=== PATIENT | female | born 1955 | race Caucasian/White ===

== ENCOUNTER 2020-04-02 18:33 | Observation (INO) | payer MEDICARE, SELFPAY ==
--- NOTE | 2020-04-02 18:35 | XR_ITS ---
WS: [id number] Portable AP upright chest, 04/02/2020 Clinical Data: cp Comparison: None. Findings: No nodules, masses or effusions are seen. The heart is normal. The pulmonary vascularity is not increased. No pneumonia or pneumothorax is seen. The aortic arch and descending aorta are tortuo us. XR/XR chest 1V portable [id number] Impression: Atherosclerosis.
--- NOTE | 2020-04-02 18:35 | ECG_ITS ---
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
[2020-04-02 19:13] VITALS: BP 153/88; PULSE 83; RESP 14; TEMP 36.4; O2SAT 93; BMI 39.1
[2020-04-02 19:46] VITALS: BP 136/85; PULSE 89; O2SAT 94
[2020-04-02] MEDS: aspirin 81 mg Chew Tablet 324 MG PO (19:57)
[2020-04-02 19:58] LABS: Basophils # 0.1 10^3/uL (0.0-0.1); Basophils % 0.4 %; Eosinophils # 0.3 10^3/uL (0.0-0.8); Eosinophils % 1.7 %; Hematocrit 47.7 % (37.0-47.0); Hemoglobin 15.3 g/dL (11.5-15.3); Lymphocytes # 4.2 10^3/uL (0.8-4.8); Lymphocytes % 24.1 %; Mean Corpuscular HGB Conc 32.1 g/dL (30.0-36.0); Mean Corpuscular Hemoglobin 28.9 pg (28.0-34.0); Mean Platelet Volume 8.7 fL (7.4-10.4); Monocytes # 0.9 10^3/uL (0.2-0.9); Monocytes % 4.9 %; Neutrophils # 11.97 10^3/uL (1.8-7.7); Neutrophils % 68.4 %; Nucleated Red Blood Cells % 0 %; Platelet Count 377 10^3/cmm (130-400); Red Cell Distribution Width 13.5 % (12.1-15.1); White Blood Count 17.5 10^3/uL (4.0-10.0)
--- NOTE | 2020-04-02 20:13 | ED_ITS ---
HPI - Chest Pain General: Chief Complaint: Chest Pain Stated Complaint: CHEST PAIN Time Seen by Provider: 04/02/20 19:37 History of Present Illness: HPI narrative: The patient is a 64-year-old female with past medical history COPD who comes to the ER complaining of chest pain that radiates down her left arm and left neck. She says she has had episodes of this for the past several months however in the past few days they have been increasing in frequency and she has had them several times a day now. She says she has a very mild pain in the ER which feels like something is pushing on her chest. The pain is midsternal and radiates to her left side. She denies previous history of NM. MD complaint: chest pain Timing of current episode: daily, increasing and still present Prior episodes: Yes Onset: during rest and during exertion Pain location: substernal and left chest Pain radiation: left arm and neck Severity: moderate Relieving factors: nothing Associated symptoms: Deny abdominal pain, dyspnea, leg edema, nausea, palpitations or vomiting Review of Systems General: Reports: 10 or more systems reviewed and unremarkable except in HPI and below Const: Denies: fatigue Eyes: Denies: change in vision, blurry vision or eye redness ENMT: Denies: throat pain, swelling of lips/tongue, ear or mastoid pain or na dustin congestion Card: Reports: chest pain; Denies: palpitations, irregular heart rhythm, edema, dyspnea on exertion or or thopnea Resp: Denies: dyspnea GI: Denies: abdominal pain, nausea or vomiting : Denies: flank pain, difficulty voiding, urinary frequency or urinary urgency Musc: Denies: neck pain, back pain, extremity pain, joint pain, joint redness, limited range of motion or muscle weakness Skin/Breast: Denies: rash, pruritus, erythema, skin pain or skin tenderness Neuro: Denies: headache(s), numbness in extremities, weakness in extremities, sensory changes, difficulty walking, dizziness, confusion or Slurred speech present Psych: Denies: anxiety or depression Endo: Denies: polyuria All/Imm: Denies: urticaria, throat swelling or tongue swelling PFSH ED PFSH: Medical History (Updated 04/03/20 @ 00:28 by Tara Hays MD) COPD (chronic obstructive pulmonary disease) Hypertension Surgical History (Updated 04/03/20 @ 00:28 by Tara Hays MD) H/O tubal ligation H/O: hemorrhoidectomy History of appendectomy History of hysterectomy Family History (Updated 04/03/20 @ 00:28 by Tara Hays MD) Grandmother Family history of premature coronary artery disease Social History (Updated 04/03/20 @ 00:28 by Tara Hays MD) Smoking and tobacco status: heavy tobacco smoker cigarettes [ Other cigarette details: [id number] smoking ] Alcohol intake: never Household members: family Housing: House Physical Exam Const: COMMON NORMALS: no acute distress, average body habitus, patient oriented x3, no limitations, healthy appearing, alert and well nourished GENERAL APPEARANCE: cooperative, comfortable, well kempt and well developed ORIENTATION/CONSCIOUSNESS: Yes awake, Yes oriented to person, Yes oriented to place and Yes oriented to time HENMT: COMMON NORMALS: normocephalic, external ears normal and Normal external nose present HEAD & SCALP: normal to inspection and normocephalic NOSE: Normal external nose present EXTERNAL EAR: Yes external ears normal MOUTH: Normal oral and palatal mucosa present THROAT: posterior oropharynx normal Eye: COMMON NORMALS: Equal, round and reactive pupils present and EOMs intact bilaterally GENERAL EYE: appearance normal, both eyes and all related structures PUPIL: Yes Equal, round and reactive pupils present Neck/C-Spine: COMMON NORMALS: full ROM, no lymphadenopathy, no meningeal signs and no JVD GENERAL: Yes normal visual inspection Lymph: LYMPHATIC: no lymphadenopathy noted Chest: COMMONS NORMALS: normal inspection of the chest and normal palpation of entire chest wall Resp: COMMON NORMALS: normal respiratory effort, No retractions, No use of accessory muscles, clear to auscultation bilaterally and percussion normal EFFORT & INSPECTION: Yes able to speak in complete sentences AUSCULTATION: clear to auscultation bilaterally PERCUSSION: percussion normal Cardio: COMMON NORMALS: no JVD, regular rate, regular rhythm, S1 normal heart sound present, S2 normal heart sound present and Peripheral pulses 2+ throughout RATE: regular rate RHYTHM: regular rhythm HEART SOUNDS: S1 normal heart sound present and S2 normal heart sound present PERIPHERAL PULSES: Peripheral pulses 2+ throughout GI: COMMON NORMALS: Normal to inspection, nondistended, normoactive bowel sounds present, Soft to palpation, non-tender and no masses INSPECTION: Yes normal to inspection PALPATION: Yes Soft to palpation : COMMON NORMALS: Yes no CVA tenderness BLADDER/KIDNEY EXAM: Yes no CVA tenderness Back/Pelvis: COMMON NORMALS: no CVA tenderness, thoracic and lumbar spine normal to inspection, no thoracic nor lumbar tenderness and thoraco-lumbar ROM normal Extremity: COMMON NORMALS: normal to inspection, full ROM, capillary refill normal, no joint enlargement and no pedal edema GENERAL: Yes normal exam except as noted Neuro: COMMON NORMALS: patient oriented x3, CN's II-XII intact bilaterally, moves all extremities, no focal motor deficits, no sensory deficits noted and gait normal SENSORIUM/ORIENTATION: Yes alert, Yes oriented to person, Yes oriented to place and Yes oriented to time MENINGEAL SIGNS: Yes no meningeal signs Psych: COMMON NORMALS: mental status grossly normal, Normal thought process present, cooperative, normal affect and speech normal APPEARANCE: Yes well kempt ATTITUDE: Yes calm SPEECH: Yes normal speech THOUGHT PROCESS: Normal thought process present Skin: COMMON NORMALS: no rashes or lesions noted GENERAL SKIN EXAM: no rashes or lesions noted Course Vital Signs: Vital signs: Vital Signs Temperature 98.1 F 04/03/20 19:40 Pulse Rate 93 04/03/20 19:40 Respiratory Rate 18 04/03/20 19:40 Blood Pressure 126/81 04/03/20 19:40 Pulse Oximetry 96 04/03/20 19:40 MDM - Chest Pain MDM Narrative: Medical decision making narrative: The patient came into the ER complaining of left-sided chest pain radiating to her left shoulder and neck. She was admitted to the ER for observation of her chest pain. EKG and troponin were normal. Her white count was also 15 and chest x-ray shows a right-sided pneumonia. She was started on IV antibiotics and admitted to the hospitalist. Lab Data: Labs: Lab Results 04/02/20 04/02/20 04/02/20 Range/Units 19:40 19:40 19:40 WBC 17.5 H (4.0-10.0) 10^3/ uL RBC 5.30 (4.1-5.3) 10^6/u L Hgb 15.3 (11.5-15.3) g/dL Hct 47.7 H (37.0-47.0) % MCV 90.0 (81-99) fL MCH 28.9 (28.0-34.0) pg MCHC 32.1 (30.0-36.0) g/dL RDW 13.5 (12.1-15.1) % Plt Count 377 (130-400) 10^3/c mm MPV 8.7 (7.4-10.4) fL Neut % (Auto) 68.4 % Lymph % (Auto) 24.1 % Dukes % (Auto) 4.9 % Eos % (Auto) 1.7 % Baso % (Auto) 0.4 % Neut # (Auto) 11.97 H (1.8-7.7) 10^3/u L Lymph # (Auto) 4.2 (0.8-4.8) 10^3/u L Dukes # (Auto) 0.9 (0.2-0.9) 10^3/u L Eos # (Auto) 0.3 (0.0-0.8) 10^3/u L Baso # (Auto) 0.1 (0.0-0.1) 10^3/u L Nucleated RBC % (a uto) 0 % Nucleated RBCs # 0.0 /100WBC D-Dimer (0-0.59) ug/mIFE U Sodium 136 (136-145) mmol/L Potassium 4.3 (3.5-5.1) mmol/L Chloride 97 L (98-107) mmol/L Carbon Dioxide 31 H (22-29) mmol/L Anion Gap 12.3 (5-19) BUN 13 (8-23) mg/dL Creatinine 0.6 (0.5-0.9) mg/dL GFR Calculation 101.3 (90-130) mL/min Glucose 162 H (65-115) mg/dL Estimat Average Gl ucose Hemoglobin A1c (4.0-6.0) % Calculated Osmolal ity 286 (285-295) mOsm/k g Calcium 9.6 (8.5-10.5) mg/dL Total Bilirubin 0.4 (0.15-1.2) mg/dL AST 12 (0-32) U/L ALT 16 (0-33) U/L Alkaline Phosphata se 73 (35-105) IU/L Troponin T Baselin e 7 (0-10) ng/L Troponin T 120 Min [place] (0-10) ng/L Delta Troponin T (0-10) ABS# Troponin T Hi Sens 6Hr (0-10) ng/L Troponin T Hi Sens 6Hr Delta (0-12) ng/L Total Protein 6.5 L (6.6-8.7) g/dL Albumin 4.1 (3.5-5.2) g/dL Globulin 2.4 (1.3-4.6) g/dL Triglycerides (0-150) mg/dL Cholesterol (0-200) mg/dL LDL Cholesterol, C alc (50-129) mg/dL HDL Cholesterol (60-100) mg/dL LDL/HDL Ratio (0.00-3.22) RATI O Cholesterol/HDL Ra katelyn (0.0-4.40) mg/dL Urine Color (Yellow) Urine Appearance (CLEAR) Urine pH (5-7) Ur Specific Gravit y (1.005-1.030) Urine Protein (Negative) Urine Glucose (UA) (Normal) Urine Ketones (Negative) Urine Blood (Negative) Urine Nitrate (Negative) Urine Bilirubin (Negative) Urine Urobilinogen (Negative) mg/dL Ur Leukocyte Nancy ase (Negative) SARS-CoV-2 Ag (Rap id) (Negative) 04/02/20 04/02/20 04/02/20 Range/Units 19:40 19:40 20:52 WBC (4.0-10.0) 10^3/ uL RBC (4.1-5.3) 10^6/u L Hgb (11.5-15.3) g/dL Hct (37.0-47.0) % MCV (81-99) fL MCH (28.0-34.0) pg MCHC (30.0-36.0) g/dL RDW (12.1-15.1) % Plt Count (130-400) 10^3/c mm MPV (7.4-10.4) fL Neut % (Auto) % Lymph % (Auto) % Dukes % (Auto) % Eos % (Auto) % Baso % (Auto) % Neut # (Auto) (1.8-7.7) 10^3/u L Lymph # (Auto) (0.8-4.8) 10^3/u L Dukes # (Auto) (0.2-0.9) 10^3/u L Eos # (Auto) (0.0-0.8) 10^3/u L Baso # (Auto) (0.0-0.1) 10^3/u L Nucleated RBC % (a uto) % Nucleated RBCs # /100WBC D-Dimer 0.28 (0-0.59) ug/mIFE U Sodium (136-145) mmol/L Potassium (3.5-5.1) mmol/L Chloride (98-107) mmol/L Carbon Dioxide (22-29) mmol/L Anion Gap (5-19) BUN (8-23) mg/dL Creatinine (0.5-0.9) mg/dL GFR Calculation (90-130) mL/min Glucose (65-115) mg/dL Estimat Average Gl ucose 154 Hemoglobin A1c 7.0 H (4.0-6.0) % Calculated Osmolal ity (285-295) mOsm/k g Calcium (8.5-10.5) mg/dL Total Bilirubin (0.15-1.2) mg/dL AST (0-32) U/L ALT (0-33) U/L Alkaline Phosphata se (35-105) IU/L Troponin T Baselin e (0-10) ng/L Troponin T 120 Min [place] (0-10) ng/L Delta Troponin T (0-10) ABS# Troponin T Hi Sens 6Hr (0-10) ng/L Troponin T Hi Sens 6Hr Delta (0-12) ng/L Total Protein (6.6-8.7) g/dL Albumin (3.5-5.2) g/dL Globulin (1.3-4.6) g/dL Triglycerides (0-150) mg/dL Cholesterol (0-200) mg/dL LDL Cholesterol, C alc (50-129) mg/dL HDL Cholesterol (60-100) mg/dL LDL/HDL Ratio (0.00-3.22) RATI O Cholesterol/HDL Ra katelyn (0.0-4.40) mg/dL Urine Color Yellow (Yellow) Urine Appearance Clear (CLEAR) Urine pH 5.0 (5-7) Ur Specific Gravit y 1.005 (1.005-1.030) Urine Protein Neg (Negative) Urine Glucose (UA) Norm (Normal) Urine Ketones Negative (Negative) Urine Blood Neg (Negative) Urine Nitrate Negative (Negative) Urine Bilirubin Neg (Negative) Urine Urobilinogen Norm (Negative) mg/dL Ur Leukocyte Nancy ase Negative (Negative) SARS-CoV-2 Ag (Rap id) (Negative) 04/02/20 04/02/20 04/03/20 Range/Units 21:35 22:01 00:35 WBC (4.0-10.0) 10^3/ uL RBC (4.1-5.3) 10^6/u L Hgb (11.5-15.3) g/dL Hct (37.0-47.0) % MCV (81-99) fL MCH (28.0-34.0) pg MCHC (30.0-36.0) g/dL RDW (12.1-15.1) % Plt Count (130-400) 10^3/c mm MPV (7.4-10.4) fL Neut % (Auto) % Lymph % (Auto) % Dukes % (Auto) % Eos % (Auto) % Baso % (Auto) % Neut # (Auto) (1.8-7.7) 10^3/u L Lymph # (Auto) (0.8-4.8) 10^3/u L Dukes # (Auto) (0.2-0.9) 10^3/u L Eos # (Auto) (0.0-0.8) 10^3/u L Baso # (Auto) (0.0-0.1) 10^3/u L Nucleated RBC % (a uto) % Nucleated RBCs # /100WBC D-Dimer (0-0.59) ug/mIFE U Sodium (136-145) mmol/L Potassium (3.5-5.1) mmol/L Chloride (98-107) mmol/L Carbon Dioxide (22-29) mmol/L Anion Gap (5-19) BUN (8-23) mg/dL Creatinine (0.5-0.9) mg/dL GFR Calculation (90-130) mL/min Glucose (65-115) mg/dL Estimat Average Gl ucose Hemoglobin A1c (4.0-6.0) % Calculated Osmolal ity (285-295) mOsm/k g Calcium (8.5-10.5) mg/dL Total Bilirubin (0.15-1.2) mg/dL AST (0-32) U/L ALT (0-33) U/L Alkaline Phosphata se (35-105) IU/L Troponin T Baselin e (0-10) ng/L Troponin T 120 Min [place] 7.41 (0-10) ng/L Delta Troponin T 0.41 (0-10) ABS# Troponin T Hi Sens 6Hr 7.65 (0-10) ng/L Troponin T Hi Sens 6Hr Delta 0.65 (0-12) ng/L Total Protein (6.6-8.7) g/dL Albumin (3.5-5.2) g/dL Globulin (1.3-4.6) g/dL Triglycerides (0-150) mg/dL Cholesterol (0-200) mg/dL LDL Cholesterol, C alc (50-129) mg/dL HDL Cholesterol (60-100) mg/dL LDL/HDL Ratio (0.00-3.22) RATI O Cholesterol/HDL Ra katelyn (0.0-4.40) mg/dL Urine Color (Yellow) Urine Appearance (CLEAR) Urine pH (5-7) Ur Specific Gravit y (1.005-1.030) Urine Protein (Negative) Urine Glucose (UA) (Normal) Urine Ketones (Negative) Urine Blood (Negative) Urine Nitrate (Negative) Urine Bilirubin (Negative) Urine Urobilinogen (Negative) mg/dL Ur Leukocyte Nancy ase (Negative) SARS-CoV-2 Ag (Rap id) Negative (Negative) 04/03/20 Range/Units 00:35 WBC (4.0-10.0) 10^3/ uL RBC (4.1-5.3) 10^6/u L Hgb (11.5-15.3) g/dL Hct (37.0-47.0) % MCV (81-99) fL MCH (28.0-34.0) pg MCHC (30.0-36.0) g/dL RDW (12.1-15.1) % Plt Count (130-400) 10^3/c mm MPV (7.4-10.4) fL Neut % (Auto) % Lymph % (Auto) % Dukes % (Auto) % Eos % (Auto) % Baso % (Auto) % Neut # (Auto) (1.8-7.7) 10^3/u L Lymph # (Auto) (0.8-4.8) 10^3/u L Dukes # (Auto) (0.2-0.9) 10^3/u L Eos # (Auto) (0.0-0.8) 10^3/u L Baso # (Auto) (0.0-0.1) 10^3/u L Nucleated RBC % (a uto) % Nucleated RBCs # /100WBC D-Dimer (0-0.59) ug/mIFE U Sodium (136-145) mmol/L Potassium (3.5-5.1) mmol/L Chloride (98-107) mmol/L Carbon Dioxide (22-29) mmol/L Anion Gap (5-19) BUN (8-23) mg/dL Creatinine (0.5-0.9) mg/dL GFR Calculation (90-130) mL/min Glucose (65-115) mg/dL Estimat Average Gl ucose Hemoglobin A1c (4.0-6.0) % Calculated Osmolal ity (285-295) mOsm/k g Calcium (8.5-10.5) mg/dL Total Bilirubin (0.15-1.2) mg/dL AST (0-32) U/L ALT (0-33) U/L Alkaline Phosphata se (35-105) IU/L Troponin T Baselin e (0-10) ng/L Troponin T 120 Min [place] (0-10) ng/L Delta Troponin T (0-10) ABS# Troponin T Hi Sens 6Hr (0-10) ng/L Troponin T Hi Sens 6Hr Delta (0-12) ng/L Total Protein (6.6-8.7) g/dL Albumin (3.5-5.2) g/dL Globulin (1.3-4.6) g/dL Triglycerides 156 H (0-150) mg/dL Cholesterol 171 (0-200) mg/dL LDL Cholesterol, C alc 89 (50-129) mg/dL HDL Cholesterol 51 L (60-100) mg/dL LDL/HDL Ratio 1.75 (0.00-3.22) RATI O Cholesterol/HDL Ra katelyn 3.35 (0.0-4.40) mg/dL Urine Color (Yellow) Urine Appearance (CLEAR) Urine pH (5-7) Ur Specific Gravit y (1.005-1.030) Urine Protein (Negative) Urine Glucose (UA) (Normal) Urine Ketones (Negative) Urine Blood (Negative) Urine Nitrate (Negative) Urine Bilirubin (Negative) Urine Urobilinogen (Negative) mg/dL Ur Leukocyte Nancy ase (Negative) SARS-CoV-2 Ag (Rap id) (Negative) Discharge Plan Discharge Patient Disposition: Admitted As Inpatient Admit Provider: Tara Hays Condition: Stable Coding Level of Care Code ED Sap Solution Manager Consultant for Chg Fwd Exam Comprehensive
[2020-04-02 20:29] LABS: D Dimer 0.28 ug/mIFEU (0-0.59)
[2020-04-02 20:33] LABS: Alanine Aminotransferase 16 U/L (0-33); Albumin Level 4.1 g/dL (3.5-5.2); Alkaline Phosphatase 73 IU/L (35-105); Anion Gap 12.3 (5-19); Aspartate Amino Transferase 12 U/L (0-32); Blood Urea Nitrogen 13 mg/dL (8-23); Calcium 9.6 mg/dL (8.5-10.5); Carbon Dioxide 31 mmol/L (22-29); Chloride 97 mmol/L (98-107); Globulin 2.4 g/dL (1.3-4.6); Glomerular Filtration Rate 101.3 mL/min (90-130); Glucose 162 mg/dL (65-115); Osmolality Calculated 286 mOsm/kg (285-295); Potassium 4.3 mmol/L (3.5-5.1); Sodium 136 mmol/L (136-145); Total Bilirubin 0.4 mg/dL (0.15-1.2); Total Protein 6.5 g/dL (6.6-8.7)
[2020-04-02 20:35] LABS: Troponin(5th) Baseline 7 ng/L (0-10)
--- NOTE | 2020-04-02 20:35 | ECG_ITS ---
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 Measurements Intervals [place] Rate: 84 P: 54 MN: 134 QRS: 47 QRSD: 81 T: 52 QT: 381 QTc: 451 Interpretive Statements SINUS RHYTHM Compared to ECG 04/02/2020 19:10:58 No significant changes Electronically Signed On 04-03-2020 11:28:38 EXPEDITER SERVICE ORDER by Ralph Rojas M.D. [id number]
[2020-04-02] MEDS: nitroglycerin 0.4 mg sublingual Tablet SUBLINGUAL (20:50)
[2020-04-02 20:57] VITALS: BP 151/91; PULSE 87; O2SAT 91
[2020-04-02 21:00] LABS: Add Urine Microscopic? NO
--- NOTE | 2020-04-02 21:06 | PC.NURSE ---
EKG done at 2105 and shown to ER doctor
[2020-04-02 21:22] VITALS: BP 163/85; PULSE 80; O2SAT 93
[2020-04-02 21:32] LABS: Bilirubin Urine Neg (Negative); Blood Urine Neg (Negative); Glucose Urine UA Norm (Normal); Ketones Urine Negative (Negative); Leukocyte Esterase Urine Negative (Negative); Nitrate Urine Negative (Negative); Protein Urine Neg (Negative); Specific Gravity, Urine 1.005 (1.005-1.030); Urine Appearance Clear (CLEAR); Urine Color Yellow (Yellow); Urobilinogen Urine Norm (Negative)
[2020-04-02 22:00] LABS: Troponin 5 2HR 7.41 ng/L (0-10); Troponin 5 2HR Delta 0.41 ABS# (0-10)
[2020-04-02] MEDS: levofloxacin-dextrose 5 % 750 MG/150 ML PREMIX 100 MG IV (22:25)
--- NOTE | 2020-04-02 22:36 | P.HP_ITS ---
Providers/Chief Complaint Primary Care Provider: DEB Caballero Chief Complaint: phy ref/poss heart attack History of Present Illness Arlin Arndt is a 64 year old female who does not have significant past medical history other than COPD, nonoxygen dependent presented today with chief complaint of chest pain. Patient stating that for last 3 to 4 days she has been experiencing chest discomfort which she describing as pressure-like sensation substernally which improves with belching and leaning forward, it is radiating towards her left arm and it goes towards her shoulder blades as well. She has tried to take ibuprofen which did not help her symptoms however the nitroglycerin given in the ER helped her. Her chest pain would last few minutes, she has also noticed right leg swelling in last few days. She smokes 1 pack/day, does not drink alcohol, no history of PE stroke [place] or CHF. Endorses family history of coronary disease in maternal family. No recent fever nausea, vomiting, insomnia, PND however she is endorsing inc reased sputum production. Patient is stating that recently she was diagnosed with sinusitis for which she was given doxycycline and steroid which improved her symptoms Diagnostics in the ER revealed leukocytosis no signs of sepsis, negative D- dimer, troponin unremarkable EKG did not show any ischemic or infarctive changes, patient is chest pain-free after getting nitroglycerin, she was loaded with aspirin, chest x-ray showing right middle lobe infiltrate with perihilar lymphadenopathy, I have requested CTA chest to rule out aortic dissection Review of Systems Const: Reports: chills, body aches and fatigue; Denies: fever(s) Eyes: Denies: change in vision or photophobia ENMT: Denies: throat pain Card: Reports: chest pain and swelling of feet/ankles; Denies: dyspnea on exertion or orthopnea Resp: Reports: non-productive cough and pain on inspiration GI: Denies: abdominal pain : Denies: flank pain Musc: Denies: neck pain Skin/Breast: Denies: rash Neuro: Denies: headache(s) Psych: Denies: anxiety Endo: Denies: polyuria Jose/Lymph: Denies: easy bruising All/Imm: Denies: urticaria Medications/Allergies Home Medications Medication Instructions Recorded Confirmed Last Taken Type Benadryl 1 tab PO DAILY@0900 04/02/20 04/02/20 04/02/20 History Multi For Her 1 tab PO DAILY@0900 04/02/20 04/02/20 04/02/20 History albuterol sulfate See Rx Instructions .ROUTE .COMPLEX 04/02/20 04/02/20 04/02/20 History albuterol sulfate [Ventolin HFA] See Rx Instructions .ROUTE .COMPLEX 04/02/20 04/02/20 04/02/20 History baclofen 10 mg PO DAILY@0900 04/02/20 04/02/20 04/02/20 History doxycycline hyclate 100 mg PO DAILY@0900 04/02/20 04/02/20 04/02/20 History fluticasone propion-salmeterol See Rx Instructions .ROUTE .COMPLEX 04/02/20 04/02/20 04/02/20 History fluticasone propionate See Rx Instructions .ROUTE .COMPLEX 04/02/20 04/02/20 04/02/20 History fluticasone propionate [Flovent See Rx Instructions .ROUTE .COMPLEX 04/02/20 04/02/20 04/02/20 History HFA] guaifenesin [Mucinex] 600 mg PO BID@0900,2100 04/02/20 04/02/20 04/02/20 History hydrochlorothiazide 12.5 mg PO DAILY@0900 04/02/20 04/02/20 04/02/20 History ibuprofen-acetaminophen 1 tab PO Q8H PRN 04/02/20 04/02/20 04/02/20 History meloxicam 15 mg PO DAILY@0900 04/02/20 04/02/20 04/02/20 History potassium 1 tab PO DAILY@0900 04/02/20 04/02/20 04/02/20 History prednisone 20 mg PO DAILY@0900 04/02/20 04/02/20 04/01/20 History tiotropium bromide [Spiriva See Rx Instructions .ROUTE .COMPLEX 04/02/20 04/02/20 04/02/20 History Respimat] turmeric 400 mg PO DAILY@0900 04/02/20 04/02/20 04/02/20 History zinc 1 tab PO DAILY@0900 04/02/20 04/02/20 04/02/20 History Allergies Allergy/AdvReac Type Severity Reaction Status Date / Time codeine Allergy ADR-Vomitin Verified 04/02/20 19:13 g morphine Allergy ADR-Vomitin Verified 04/02/20 19:13 g PFSH Acute PFSH: Medical History (Updated 04/03/20 @ 00:28 by Tara Hays MD) COPD (chronic obstructive pulmonary disease) Hypertension Surgical History (Updated 04/03/20 @ 00:28 by Tara Hays MD) H/O tubal ligation H/O: hemorrhoidectomy History of appendectomy History of hysterectomy Family History (Updated 04/03/20 @ 00:28 by Tara Hays MD) Grandmother Family history of premature coronary artery disease Social History (Updated 04/03/20 @ 00:28 by Tara Hays MD) Smoking and tobacco status: heavy tobacco smoker cigarettes [ Other cigarette details: 20-rfeg-qhas smoking ] Alcohol intake: never Household members: family Housing: House Vitals/I&O/Wt Last Vital Signs Temp 97.6 F 04/02/20 19:13 Pulse 80 04/02/20 21:22 Resp 14 04/02/20 19:13 BP 163/85 04/02/20 21:22 Pulse Ox 93 04/02/20 21:22 Weight last 48 hrs Weight 103.419 kg Physical Exam Narrative: EXAM NARRATIVE: Very pleasant middle-aged female She was saturating well on room air No active chest pain S1, S2 no tachycardia or signs of heart failure Abdomen soft nontender bowel sound present EOMI, PERRLA No neurological deficit GCS 15, Awake alert oriented x3 No acute respiratory distress bilateral breath sounds with mild rhonchi Right lower extremity swelling with nonpitting edema Appropriate mood and affect No joint swelling or signs of cellulitis No skin ulcers Data : 04/02/20 19:40 04/02/20 19:40 A&P Assessment and plan (1) Angina at rest: Status: Acute (2) Community acquired pneumonia: Status: Acute Additional A&P Information Unstable angina Carries multiple risk factors, heavy smoker, hypertension, family history, I would request Lexiscan stress test in the morning along echo Nonsignificant troponin elevation, EKG is not showing any ischemic or infarctive changes, N.p.o. after midnight Would rule out aortic dissection would request CTA chest abdomen pelvis D-dimer unremarkable, suspicion for PE is very low Would request lipid panel, A1c Recently she experienced sinusitis for which she was treated with doxycycline and steroid regimen, she does have some component of pericardial chest discomfort, will give her 1 dose of ketorolac Perihilar infiltrate Concern for community-acquired pneumonia, will keep her on ceftriaxone and azithromycin in the ER she received Levaquin, requested urine antigen Hypertension: I would add lisinopril and continue hydrochlorothiazide COPD: No acute exacerbation not requiring oxygen at this point, DuoNeb every 4 as needed N.p.o. after midnight Full code DVT prophylaxis Lovenox Attestations Medical Necessity Statement*: Anticipating discharge in less than 48 hours co ntinued Lexiscan stress test to rule out coronary etiology for her chest discomfort Time Spent in Patient Care: Greater than 35 minutes (>than 50% of time sp ent in counselling and/or direct pt care on unit) . 50mins Coding Level of Care Code Acute Color Sprayer for Cate Garcia Diagnoses Angina at rest I20.8 Community acquired pneumonia J18.9
[2020-04-02 22:41] LABS: SARS Covid-2 Antigen Negative (Negative)
[2020-04-02 22:50] VITALS: BP 161/89; PULSE 88; O2SAT 92
[2020-04-03] VITALS (17 sets, daily range): BP systolic 119–143; BP diastolic 67–92; PULSE 68–94; RESP 14–20; TEMP 36.4–37.1; O2SAT 83–96
--- NOTE | 2020-04-03 00:20 | CTR_ITS ---
PROCEDURE INFORMATION: Exam: CT Angiography Chest Without And With Contrast Exam date and time: 04/03/2020 12:21 AM Age: 64 years old Clinical indication: Difficulty breathing or dyspnea; Prior surgery; Surgery type: Tubal, appy, hyster; Additional info: Aortic dissection TECHNIQUE: Imaging protocol: Computed tomographic angiography of the chest without and with intravenous contrast. 3D rendering (Not supervised by radiologist): MIP and/or 3D reconstructed images were created and reviewed. COMPARISON: CR XR chest 1V portable [id number] 04/02/2020 7:50 PM FINDINGS: Pulmonary arteries: No pulmonary embolus. Aorta: Mild atherosclerotic calcific changes are observed in the aortic arch and descending thoracic aorta. No intramural hematoma, dissection or aneurysm. Lungs: Mild centrilobular emphysema changes are noted. Bibasilar subsegmental atelectasis is appreciated. Pleural space: Unremarkable. No pneumothorax. No pleural effusion. Heart: The heart is normal in size. Lymph nodes: Unremarkable. No enlarged lymph nodes. Bones/joints: Unremarkable. No acute fracture. Soft tissues: Unremarkable. IMPRESSION: 1. Atherosclerosis. No thoracic aorta aneurysm or dissection. No pulmonary embolus. 2. Mild centrilobular emphysema and bibasilar atelectasis. PROCEDURE INFORMATION: Exam: CT Angiography Abdomen and Pelvis With Contrast Exam date and time: 04/03/2020 12:21 AM Age: 64 years old Clinical indication: Difficulty breathing or dyspnea; Prior surgery; Surgery type: Tubal, appy, hyster; Additional info: Aortic dissection TECHNIQUE: Imaging protocol: Computed tomographic angiography of the abdomen and pelvis with intravenous contrast material. 3D rendering (Not supervised by radiologist): MIP and/or 3D reconstructed images were created by the technologist. Radiation optimization: All CT scans at this facility use at least one of these dose optimization techniques: automated exposure control; mA and/or kV adjustment per patient size (includes targeted exams where dose is matched to clinical indication); or iterative reconstruction. Contrast material: OMNI 350; Contrast volume: 95 ml; Contrast route: INTRAVENOUS (IV); COMPARISON: CR XR chest 1V portable [id number] 04/02/2020 7:50 PM RADIATION DOSE METRICS: Total DLP (mGy-cm): 2821.74 FINDINGS: Aorta: Atherosclerotic changes are observed in the abdominal aorta and iliac arteries. No aneurysm or dissection. Celiac trunk and mesenteric arteries: No occlusion or significant stenosis. Renal arteries: No occlusion or significant stenosis. Right iliac arteries: No occlusion or significant stenosis. Left iliac arteries: No occlusion or significant stenosis. Liver: The liver is mildly enlarged. No parenchymal lesion is seen. Gallbladder and bile ducts: Unremarkable. No calcified stones. No ductal dilation. Pancreas: Unremarkable. No mass. No ductal dilation. Spleen: A 19 mm enhancing focus is present in the spleen which is likely benign. No splenomegaly. Adrenals: Unremarkable. No mass. Kidneys and ureters: Unremarkable. No solid mass. No hydronephrosis. Stomach and bowel: Diverticulosis coli is seen, without evidence of diverticulitis. No intestinal obstruction. Appendix: The appendix has been removed. Intraperitoneal space: Unremarkable. No free air. No significant fluid collection. Lymph nodes: Unremarkable. No enlarged lymph nodes. Urinary bladder: Unremarkable. No mass. Reproductive: The uterus is absent. Bones/joints: No acute fracture. No dislocation. Soft tissues: Unremarkable. CT/CT angio chest abdomen pelvis IMPRESSION: 1. Atherosclerosis. No abdominal aortic aneurysm or dissection. 2. Diverticulosis coli. 3. Mild hepatomegaly. Radiation Dose CTDIVOL = (mGy): DLP = ~2821.74 (mGy-cm)
--- NOTE | 2020-04-03 00:35 | ECG_ITS ---
[facility] Test Date: 2020-04-03 Pat Name: Arlin Arndt Department: Room: Gender: Female [employer]: : 1955 Requested By: Samara Parks Order Number: [id number] Reading MD: TEA MIX Measurements Intervals [place] Rate: 83 P: 57 MI: 132 QRS: 47 QRSD: 77 T: 43 QT: 380 QTc: 449 Interpretive Statements SINUS RHYTHM Compared to ECG 04/02/2020 21:02:56 No significant changes Electronically Signed On 04-03-2020 18:02:20 OUTSOLE PARAFFINER by TEA MIX [id number]
[2020-04-03] MEDS: iohexol 350 mg/mL 100 mL Btl IV (00:50)
[2020-04-03 02:07] LABS: Troponin 5 6HR 7.65 ng/L (0-10); Troponin 5 6HR Delta 0.65 ng/L (0-12)
--- NOTE | 2020-04-03 02:22 | NMCV_ITS ---
NM elena perf SPECT r/s* [id number] Arlin Arndt Age: 64 Gender: F : 1955 Exam Date: 04/03/2020 07:56 Ordering Phys: Tara Hays MD Technologist: JAZMYN Chamberlain Exam Location: [facility] Indications: PHY REF/ POSS HEART ATTACK STRESS TEST Please see separate stress test report in [facility] for full findings IMAGE PROTOCOL Rest/Stress 1 Lexiscan Day Radiopharmaceutical Dose (mCi) Administration Site Administered by Rest: Tc-99m 11.0 IV JAZMYN Chamberlain Sestamibi Stress:Tc-99m 32.9 IV JAZMYN [place] Sestamibi Rest: 03-Apr-2020 60 Discovery 630 Stress: 03-Apr-2020 30 Discovery 630 0.4mg Lexiscan. Supine position only as patient was unable to lay prone. SPECT RESULTS Technical Quality: Excellent Raw Data Analysis: Breast attenuation Image Corrections: No attenuation or motion correction applied Summed Stress Score: 0 Summed Rest Score: 1 Summed Difference Score: 0 PERFUSION FINDINGS Medium-sized area of moderate reversibility noted in basal to distal anterior and septal wall suggestive of ischemia in LAD territory. Please note that patient was not able to perform the prone images therefore cannot rule out artifact. Clinical correlation advised. FUNCTIONAL RESULTS (calculated via Gated SPECT) Stress Image LV EF (%): 87 Stress EDV (mL):89 TID: 1.08 Stress ESV (mL):12 Rest Image LV EF (%): 70 FUNCTIONAL FINDINGS: There is normal left ventricular systolic function. IMPRESSIONS Medium-sized area of moderate reversibility noted in basal to distal anterior and septal wall suggestive of ischemia in LAD territory. Please note that patient was not able to perform the prone images therefore cannot rule out artifact. Clinical correlation advised. EKG segment will be documented separately. Tara Harden MD (Electronically Signed) Final Date: 03 April 2020 17:06 S
--- NOTE | 2020-04-03 02:22 | USCV_ITS ---
Arlin Arndt Age: 64 Gender: F : 1955 Exam Date: 04/03/2020 06:07 Ordering Phys: Tara Hays MD Technologist: Cristina Robertson Exam Location: [facility] Indication: ANGINA BP: 120 / 68 HR: 83 Rhythm: Sinus Technical Quality: Adequate MEASUREMENTS (Male / Female) Normal Values 2D ECHO LV Diastolic Diameter PLAX 3.2 cm 4.2 - 5.9 / 3.9 - 5.3 cm LV Systolic Diameter PLAX 1.7 cm LV Chamber Size 2.2 cm IVS Diastolic Thickness 1.3 cm 0.6 - 1.0 / 0.6 - 0.9 cm IVS Systolic Thickness 1.3 cm LVPW Diastolic Thickness 1.9 cm 0.6 - 1.0 / 0.6 - 0.9 cm LVPW Systolic Thickness 2.0 cm RV Chamber Size 4.0 cm LVOT Diameter 2.0 cm LV Ejection Fraction 2D Teich 77.8 % LV Ejection Fraction MOD 2C 42.3 % LV Ejection Fraction 2C AL 42.8 % LA Diameter 2.8 cm LA Width 2.9 cm LA Height 4.2 cm RA Width 3.1 cm RA Height 4.0 cm M-MODE LV Diastolic Diameter MM 5.0 cm 4.2 - 5.9 / 3.9 - 5.3 cm LV Systolic Diameter MM 3.6 cm LV Ejection Fraction MM Teich 53.7 % IVS Diastolic Thickness MM 1.3 cm 0.6 - 1.0 / 0.6 - 0.9 cm IVS Systolic Thickness MM 1.4 cm LVPW Diastolic Thickness MM 1.1 cm 0.6 - 1.0 / 0.6 - 0.9 cm LVPW Systolic Thickness MM 1.6 cm Aortic Annulus Diameter 3.3 cm LA Ao Ratio MM 1.0 MV E Point Septal Separation 0.8 cm DOPPLER AV Peak Velocity 145.0 cm/s LVOT Peak Velocity 108.0 cm/s AV Area Cont Eq vti 2.9 cm squared AV Area Cont Eq pk 2.4 cm squared MV Area PHT 4.9 cm squared Mitral E to A Ratio 0.9 MV E' Velocity 49.0 cm/s Mitral E to MV E' Ratio 10.1 Mitral E to LV E' Lateral Ratio 9.2 Mitral E to LV E' Septal Ratio 11.1 TR Peak Velocity 182.3 cm/s TR Peak Gradient 13.3 mmHg TV Peak E Velocity 39.0 cm/s Right Atrial Pressure 3.0 mmHg Pulmonary Artery Systolic Pressu 16.3 mmHg PV Peak Velocity 79.0 cm/s RV Acceleration Time 0.1 s RV Ejection Time 0.3 s RV AcT/ET 0.5 FINDINGS Left Ventricle Normal left ventricular size and systolic function, EF 60 %. No regional wall motion abnormalities. Grade I/IV diastolic dysfunction (abnormal relaxation filling pattern), normal to mildly elevated filling pressures. Right Ventricle Possibly normal LV size and ejection fraction. Right Atrium Possibly of normal size Left Atrium Possibly of normal size Mitral Valve No gross abnormalities noted Aortic Valve No gross abnormalities noted Tricuspid Valve Not visualized well . Pulmonic Valve Pulmonic valve not well visualized. Pericardium No pericardial effusion. Aorta Normal aortic annulus size. CONCLUSIONS Normal left ventricular size and systolic function, EF 60 %. No regional wall motion abnormalities. Grade I/IV diastolic dysfunction (abnormal relaxation filling pattern), normal to mildly elevated filling pressures. No significant stenotic or regurgitant lesions. Possibly normal chamber sizes. Technically difficult study because of the poor ultrasonic window. Dr Amadna Stanford MD FAC (Electronically Signed) Final Date: 03 April 2020 17:57 S
[2020-04-03 02:47] LABS: Chol HDL Ratio 3.35 mg/dL (0.0-4.40); Cholesterol 171 mg/dL (0-200); HDL Cholesterol 51 mg/dL (60-100); LDL Cholesterol Calculated 89 mg/dL (50-129); LDL HDL Ratio 1.75 RATIO (0.00-3.22); Triglycerides 156 mg/dL (0-150)
[2020-04-03 02:54] LABS: Estmated Average Glucose 154
[2020-04-03] MEDS: ketorolac 30 mg/mL INJ 15 MG IVP (03:22)
[2020-04-03] MEDS: ipratropium-albuterol 3 mL Neb INHALATION ×2 (03:25→12:25)
[2020-04-03 05:38] LABS: Basophils # 0.1 10^3/uL (0.0-0.1); Basophils % 0.4 %; Eosinophils # 0.3 10^3/uL (0.0-0.8); Eosinophils % 1.7 %; Hematocrit 46.5 % (37.0-47.0); Hemoglobin 14.7 g/dL (11.5-15.3); Lymphocytes # 4.5 10^3/uL (0.8-4.8); Lymphocytes % 30.2 %; Mean Corpuscular HGB Conc 31.6 g/dL (30.0-36.0); Mean Corpuscular Hemoglobin 28.7 pg (28.0-34.0); Mean Corpuscular Volume 90.8 fL (81-99); Mean Platelet Volume 8.8 fL (7.4-10.4); Monocytes # 0.9 10^3/uL (0.2-0.9); Monocytes % 5.9 %; Neutrophils # 9.23 10^3/uL (1.8-7.7); Neutrophils % 61.3 %; Nucleated Red Blood Cells % 0 %; Platelet Count 357 10^3/cmm (130-400); Red Blood Count 5.12 10^6/uL (4.1-5.3); Red Cell Distribution Width 13.5 % (12.1-15.1)
[2020-04-03 06:16] LABS: Anion Gap 12.5 (5-19); Blood Urea Nitrogen 12 mg/dL (8-23); Calcium 9.2 mg/dL (8.5-10.5); Carbon Dioxide 32 mmol/L (22-29); Chloride 99 mmol/L (98-107); Glucose 104 mg/dL (65-115); Osmolality Calculated 288 mOsm/kg (285-295); Potassium 4.5 mmol/L (3.5-5.1); Sodium 139 mmol/L (136-145)
[2020-04-03 08:24] LABS: Procalcitonin 0.04 ng/mL (0-0.5)
[2020-04-03] MEDS: regadenoson 0.4 Mg/5 ml Syringe IVP (08:29)
--- NOTE | 2020-04-03 10:05 | PC.CHAP ---
Pastoral Care Encounter/Spiritual Assessment Type of Contact [] Declined floor manager visit [] Patient/Family/Request visit [] Outpatient visit [] Follow-up visit [] Physician referral [] Code/Alert [x] Routine visit [] Staff referral [] Actively dying [] Patient sleeping [] Family support [] [] Out of room [] Palliative care [] [x] Receiving care in room [] Pre-surgical visit [] Trauma [] Long length of stay [] ICU visit [] Other: Relational/Emotional Strength [x] Patient feels connected with others/family/visitors/staff [] Distress [] Loneliness/isolation [] Abandonment Spirituality of Patient [x] Person of Bella [] Attends Yazidism of their Bella [x] Believes in Prayer [] Reads Bible or Amish materials [] There are Spiritual issues to be addressed Supervisor Type Photography Interventions [x] Prayer [x] Active listening [x] Non-anxious presence [x] Spiritual/emotional support [] Crisis/trauma care [x] Spiritual counseling [] Bereavement support [] Provided bereavement packet [] Provided Bible/devotional materials [] Provided toy/stuffed animal, coloring book to patient or family member [] Provided Communion [] Anointing/[place] [] Salvation [x] Completed spiritual assessment [] Other: Impact on Illness or Injury [] Angry [] Fearful [] Anxious [] Often cries [] Exhaustion [] Unable to work [] Unable to attend catholic [] Unable to walk/stand [] Unable to read [] Unable to drive [] Unable to eat/drink [] Unable to sleep [] Unable to be with family [] Patient intubated [] Other: Summary had stress test, doesn't know about tests yet, has a good attitude, bright and alourt Time spent with patient 10 mins
[2020-04-03] MEDS: hydroCHLOROthiazide 25 mg Tablet 12.5 MG PO (10:44)
[2020-04-03] MEDS: azithromycin 250 mg Tablet 500 MG PO (10:44)
[2020-04-03] MEDS: lisinopril 5 mg Tablet PO (10:45)
[2020-04-03] MEDS: cefTRIAXone 1,000 MG in sodium chloride 0.9% (plus) 50 ML 100 MG IV (10:46)
[2020-04-03] MEDS: diphenhydrAMINE 25 mg Capsule PO (11:44)
--- NOTE | 2020-04-03 11:49 | P.PN_ITS ---
Subjective Subjective: Interval history: Patient is doing okay. Denies chest pain. Underwent stress test but the results are pending. No shortness of breath. Reports runny nose. No fever or chills. No nausea or vomiting. No diarrhea. Medications: Reviewed: Yes Medication Review Details: Generic Name Dose Route Start Last Admin Trade Name Freq PRN Reason Stop Dose Admin Albuterol/Ipratrop ium 3 ml 04/03/20 02:22 04/03/20 03:25 Ipratropium-Albu terol 3 Ml Neb INHALATION 3 ml Q6H PRN Administration SHORTNESS OF ISMAEL TH Azithromycin 500 mg 04/03/20 09:00 04/03/20 10:44 Azithromycin 250 Mg Tablet PO 500 mg DAILY NICKIE Administration Protocol Diphenhydramine HC l 25 mg 04/03/20 11:17 04/03/20 11:44 Diphenhydramine 25 Mg Capsule PO 25 mg Q8H PRN Administration ALLERGIES Hydrochlorothiazid e 12.5 mg 04/03/20 09:00 04/03/20 10:44 Hydrochlorothiaz anshu 25 Mg Tablet PO 12.5 mg DAILY@0900 NICKIE Administration Ceftriaxone Sodium 1,000 mg/ 50 mls @ 100 mls/ hr 04/03/20 09:00 04/03/20 10:46 Sodium Chloride IV 100 mls/hr DAILY NICKIE Administration Protocol Lisinopril 5 mg 04/03/20 09:00 04/03/20 10:45 Lisinopril 5 Mg Tablet PO 5 mg DAILY NICKIE Administration Vitals/I&O/Wt Last Vital Signs Temp 97.5 F L 04/03/20 11:42 Pulse 68 04/03/20 11:42 Resp 17 04/03/20 11:42 BP 124/84 04/03/20 11:42 Pulse Ox 94 04/03/20 11:42 Weight last 48 hrs Weight 103.419 kg Physical Exam Narrative: EXAM NARRATIVE: The patient is awake alert oriented. No acute distress. Mood and affect are appropriate. Responses are adequate. Skin warm and dry. Moist mucous nares. Neck supple. No JVD Lungs decreased breath sounds bilaterally. No crackles. No respiratory distress. Heart S1, S2, regular Abdomen soft, nontender, bowel sounds are present Extremities no edema cyanosis or calf tenderness bilaterally. No focal weakness. Normal speech Eyes Kaylee, extraocular muscles are intact. Data : 04/03/20 05:28 04/03/20 05:28 A&P Additional A&P Information Unstable angina Carries multiple risk factors, heavy smoker, hypertension, family history, I would request Lexiscan stress test in the morning along echo Nonsignificant troponin elevation, EKG is not showing any ischemic or infarctive changes, N.p.o. after midnight Would rule out aortic dissection would request CTA chest abdomen pelvis D-dimer unremarkable, suspicion for PE is very low Would request lipid panel, A1c Recently she experienced sinusitis for which she was treated with doxycycline and steroid regimen, she does have some component of pericardial chest discomfort, will give her 1 dose of ketorolac Perihilar infiltrate Concern for community-acquired pneumonia, will keep her on ceftriaxone and azithromycin in the ER she received Levaquin, requested urine antigen Hypertension: I would add lisinopril and continue hydrochlorothiazide COPD: No acute exacerbation not requiring oxygen at this point, DuoNeb every 4 as needed N.p.o. after midnight Full code DVT prophylaxis Lovenox [place] Chest pain. Stress test report is pending. Pneumonia. Continue azithromycin and Rocephin. COPD. The lungs sound tight. However she is not in any distress. No wheezes. We will continue as needed treatments. We will try to avoid steroids as long as she remains stable without hypoxia. DVT prophylaxis. We will start her on Lovenox. Hypertension. Well-controlled. Continue current management. The plan of care was discussed with the patient. She verbalized understanding and agreement. Attestations 2 Medical Necessity Statement*: Need another day for IV antibiotics for pneumonia. Hopefully will be able to discharge her home tomorrow. Coding Level of Care Code Acute Private Duty Nurse for Cate Garcia
--- NOTE | 2020-04-03 15:52 | PC.NURSE ---
patient is on room air. 02 level is 89% i reported this to the nurse
--- NOTE | 2020-04-03 15:55 | PC.NURSE ---
This nurse was notified by LIVING ADVISOR that O2 level was 88-89% I went and recheck O2 she was at 91%. I also notified RT via [employer].
--- NOTE | 2020-04-03 19:39 | PM.EVENT ---
Event Note Event Note: Patient is very upset, she is complaining about the hospital bed and wants to go home, I reviewed her cardiac stress test, EKG, CTA chest, her nurse Winsome has tried to convince her to stay but patient was adamant about leaving. When her nurse asked about her reason to go home patient stated that she was upset about the bed, and her breathing regimen was not administered however it has been ordered as needed. I have also added Pulmicort along DuoNeb in order to satisfy her complaint but Ms. Arndt would not change her decision. She understands risks and complications of leaving AGAINST MEDICAL ADVICE including sudden cardiac arrest, [place] and . final note to be done by Dr. Cutler.
--- NOTE | 2020-04-03 19:42 | PC.NURSE ---
AMA Into pts room and she is stating that she is leaving tonight. Is unhappy with roommate and says is not getting breathing txs the way she wants them. Says she does not believe she even has pneumonia. Says she really just wants to go home. Talked with and offered to change meds to what pt wants and to move her to another room but would not change her mind. Stated when she makes up her mind she is done. Says has already called family to come get her. was informed of pts decision to leave.Signed AMA paperwork and IV removed.
--- NOTE | 2020-04-03 19:45 | PM.DCS ---
Discharge Providers Date of Admission: 04/03/20 01:32 Date of Discharge: April 03, 2020 Attending Provider at Admission: Tara Hays MD Attending Provider at Discharge: David Albert Primary Care Provider: DEB Caballero Diagnoses at Discharge Discharge Diagnosis (1) Angina at rest: Status: Acute (2) Community acquired pneumonia: Status: Acute Reason for Visit Reason for Visit: phy ref/poss heart attack Discharge Data Data Completed and Pending: Completed Studies During Hospitalization Category Date Time Status CT angio chest ab domen pelvis Urgen t Cat Scan 04/03/20 00:20 Completed XR chest 1V [facility] [place] 48024 Stat Exams 04/02/20 18:35 Completed NM elena perf SPECT r/s* [id number] Routin e Nuc Med 04/03/20 02:22 Completed CV echo complete* [id number] Routine Ultrasound 04/03/20 02:22 Completed Pending at discharge Category Date Time Status Sestamibi Stress Test Request Routi ne Exams 04/04/20 06:00 Ordered Bacterial Antigen Stat Lab 04/03/20 02:22 Uncollected Complete Blood Co unt w/Auto AM LABS Lab 04/04/20 04:00 Ordered Legionella Antige n STAT Stat Lab 04/03/20 02:22 Uncollected Magnesium AM LABS Lab 04/04/20 04:00 Ordered Procalcitonin AM LABS Lab 04/04/20 04:00 Ordered Renal Function Pa deyanira AM LABS Lab 04/04/20 04:00 Ordered Labs from last 24 hours 04/03/20 04/03/20 04/03/20 05:28 05:28 05:28 WBC 15.0 H RBC 5.12 Hgb 14.7 Hct 46.5 MCV 90.8 MCH 28.7 MCHC 31.6 RDW 13.5 Plt Count 357 MPV 8.8 Neut % (Auto) 61.3 Lymph % (Auto) 30.2 Maury % (Auto) 5.9 Eos % (Auto) 1.7 Baso % (Auto) 0.4 Neut # (Auto) 9.23 H Lymph # (Auto) 4.5 Maury # (Auto) 0.9 Eos # (Auto) 0.3 Baso # (Auto) 0.1 Nucleated RBC % (a uto) 0 Nucleated RBCs # 0.0 D-Dimer Sodium 139 Potassium 4.5 Chloride 99 Carbon Dioxide 32 H Anion Gap 12.5 BUN 12 Creatinine 0.5 GFR Calculation 125.0 Glucose 104 Estimat Average Gl ucose Hemoglobin A1c Calculated Osmolal ity 288 Calcium 9.2 Total Bilirubin AST ALT Alkaline Phosphata se Troponin T Baselin e Troponin T 120 Min chilkat Delta Troponin T Troponin T Hi Sens 6Hr Troponin T Hi Sens 6Hr Delta Total Protein Albumin Globulin Triglycerides Cholesterol LDL Cholesterol, C alc HDL Cholesterol LDL/HDL Ratio Cholesterol/HDL Ra katelyn Procalcitonin 0.04 Urine Color Urine Appearance Urine pH Ur Specific Gravit y Urine Protein Urine Glucose (UA) Urine Ketones Urine Blood Urine Nitrate Urine Bilirubin Urine Urobilinogen Ur Leukocyte Nancy ase SARS-CoV-2 Ag (Rap id) 04/03/20 04/03/20 04/02/20 00:35 00:35 22:01 WBC RBC Hgb Hct MCV MCH MCHC RDW Plt Count MPV Neut % (Auto) Lymph % (Auto) Maury % (Auto) Eos % (Auto) Baso % (Auto) Neut # (Auto) Lymph # (Auto) Maury # (Auto) Eos # (Auto) Baso # (Auto) Nucleated RBC % (a uto) Nucleated RBCs # D-Dimer Sodium Potassium Chloride Carbon Dioxide Anion Gap BUN Creatinine GFR Calculation Glucose Estimat Average Gl ucose Hemoglobin A1c Calculated Osmolal ity Calcium Total Bilirubin AST ALT Alkaline Phosphata se Troponin T Baselin e Troponin T 120 Min chil[place] Delta Troponin T Troponin T Hi Sens 6Hr 7.65 Troponin T Hi Sens 6Hr Delta 0.65 Total Protein Albumin Globulin Triglycerides 156 H Cholesterol 171 LDL Cholesterol, C alc 89 HDL Cholesterol 51 L LDL/HDL Ratio 1.75 Cholesterol/HDL Ra katelyn 3.35 Procalcitonin Urine Color Urine Appearance Urine pH Ur Specific Gravit y Urine Protein Urine Glucose (UA) Urine Ketones Urine Blood Urine Nitrate Urine Bilirubin Urine Urobilinogen Ur Leukocyte Nancy ase SARS-CoV-2 Ag (Rap id) Negative 04/02/20 04/02/20 04/02/20 21:35 20:52 19:40 WBC RBC Hgb Hct MCV MCH MCHC RDW Plt Count MPV Neut % (Auto) Lymph % (Auto) Maury % (Auto) Eos % (Auto) Baso % (Auto) Neut # (Auto) Lymph # (Auto) Maury # (Auto) Eos # (Auto) Baso # (Auto) Nucleated RBC % (a uto) Nucleated RBCs # D-Dimer Sodium Potassium Chloride Carbon Dioxide Anion Gap BUN Creatinine GFR Calculation Glucose Estimat Average Gl ucose 154 Hemoglobin A1c 7.0 H Calculated Osmolal ity Calcium Total Bilirubin AST ALT Alkaline Phosphata se Troponin T Baselin e Troponin T 120 Min chilkat 7.41 Delta Troponin T 0.41 Troponin T Hi Sens 6Hr Troponin T Hi Sens 6Hr Delta Total Protein Albumin Globulin Triglycerides Cholesterol LDL Cholesterol, C alc HDL Cholesterol LDL/HDL Ratio Cholesterol/HDL Ra katelyn Procalcitonin Urine Color Yellow Urine Appearance Clear Urine pH 5.0 Ur Specific Gravit y 1.005 Urine Protein Neg Urine Glucose (UA) Norm Urine Ketones Negative Urine Blood Neg Urine Nitrate Negative Urine Bilirubin Neg Urine Urobilinogen Norm Ur Leukocyte Nancy ase Negative SARS-CoV-2 Ag (Rap id) 04/02/20 04/02/20 04/02/20 19:40 19:40 19:40 WBC RBC Hgb Hct MCV MCH MCHC RDW Plt Count MPV Neut % (Auto) Lymph % (Auto) Maury % (Auto) Eos % (Auto) Baso % (Auto) Neut # (Auto) Lymph # (Auto) Maury # (Auto) Eos # (Auto) Baso # (Auto) Nucleated RBC % (a uto) Nucleated RBCs # D-Dimer 0.28 Sodium 136 Potassium 4.3 Chloride 97 L Carbon Dioxide 31 H Anion Gap 12.3 BUN 13 Creatinine 0.6 GFR Calculation 101.3 Glucose 162 H Estimat Average Gl ucose Hemoglobin A1c Calculated Osmolal ity 286 Calcium 9.6 Total Bilirubin 0.4 AST 12 ALT 16 Alkaline Phosphata se 73 Troponin T Baselin e 7 Troponin T 120 Min chil[place] Delta Troponin T Troponin T Hi Sens 6Hr Troponin T Hi Sens 6Hr Delta Total Protein 6.5 L Albumin 4.1 Globulin 2.4 Triglycerides Cholesterol LDL Cholesterol, C alc HDL Cholesterol LDL/HDL Ratio Cholesterol/HDL Ra katelyn Procalcitonin Urine Color Urine Appearance Urine pH Ur Specific Gravit y Urine Protein Urine Glucose (UA) Urine Ketones Urine Blood Urine Nitrate Urine Bilirubin Urine Urobilinogen Ur Leukocyte Nancy ase SARS-CoV-2 Ag (Rap id) 04/02/20 19:40 WBC 17.5 H RBC 5.30 Hgb 15.3 Hct 47.7 H MCV 90.0 MCH 28.9 MCHC 32.1 RDW 13.5 Plt Count 377 MPV 8.7 Neut % (Auto) 68.4 Lymph % (Auto) 24.1 Maury % (Auto) 4.9 Eos % (Auto) 1.7 Baso % (Auto) 0.4 Neut # (Auto) 11.97 H Lymph # (Auto) 4.2 Maury # (Auto) 0.9 Eos # (Auto) 0.3 Baso # (Auto) 0.1 Nucleated RBC % (a uto) 0 Nucleated RBCs # 0.0 D-Dimer Sodium Potassium Chloride Carbon Dioxide Anion Gap BUN Creatinine GFR Calculation Glucose Estimat Average Gl ucose Hemoglobin A1c Calculated Osmolal ity Calcium Total Bilirubin AST ALT Alkaline Phosphata se Troponin T Baselin e Troponin T 120 Min [place] Delta Troponin T Troponin T Hi Sens 6Hr Troponin T Hi Sens 6Hr Delta Total Protein Albumin Globulin Triglycerides Cholesterol LDL Cholesterol, C alc HDL Cholesterol LDL/HDL Ratio Cholesterol/HDL Ra katelyn Procalcitonin Urine Color Urine Appearance Urine pH Ur Specific Gravit y Urine Protein Urine Glucose (UA) Urine Ketones Urine Blood Urine Nitrate Urine Bilirubin Urine Urobilinogen Ur Leukocyte Nancy ase SARS-CoV-2 Ag (Rap id) Vitals: Last Vital Signs Temp 98.1 F 04/03/20 19:25 Pulse 93 04/03/20 19:25 Resp 18 04/03/20 19:25 BP 126/81 04/03/20 19:25 Pulse Ox 90 04/03/20 19:25 Discharge Plan Discharge Patient Disposition: Home Condition: Stable Prescriptions: No Action fluticasone propion-salmeterol 250-50 mcg/dose blister with device See Rx Instructions .ROUTE .COMPLEX RF: 0 albuterol sulfate 2.5 mg /3 mL (0.083 %) solution for nebulization See Rx Instructions .ROUTE .COMPLEX RF: 0 meloxicam 15 mg tablet 15 mg PO DAILY@0900 RF: 0 prednisone 20 mg tablet 20 mg PO DAILY@0900 RF: 0 baclofen 10 mg tablet 10 mg PO DAILY@0900 RF: 0 Flovent HFA 220 mcg/actuation HFA aerosol inhaler See Rx Instructions .ROUTE .COMPLEX RF: 0 Ventolin HFA 90 mcg/actuation HFA aerosol inhaler See Rx Instructions .ROUTE .COMPLEX RF: 0 fluticasone propionate 50 mcg/actuation spray,suspension See Rx Instructions .ROUTE .COMPLEX RF: 0 doxycycline hyclate 100 mg tablet 100 mg PO DAILY@0900 RF: 0 hydrochlorothiazide 12.5 mg tablet 12.5 mg PO DAILY@0900 RF: 0 Mucinex 600 mg Tablet Extended Release 12hr 600 mg PO BID@0900,2100 RF: 0 Spiriva Respimat 1.25 mcg/actuation mist See Rx Instructions .ROUTE .COMPLEX RF: 0 turmeric 400 mg Capsule 400 mg PO DAILY@0900 RF: 0 ibuprofen-acetaminophen 125-250 mg Tablet 1 tab PO Q8H PRN (Reason: Pain) RF: 0 Benadryl 1 tab PO DAILY@0900 RF: 0 Multi For Her 1 tab PO DAILY@0900 RF: 0 potassium 1 tab PO DAILY@0900 RF: 0 zinc 1 tab PO DAILY@0900 RF: 0 Coding Level of Care Code Acute Clinic Charge Nurse for Cliffg Fwd Diagnoses Angina at rest I20.8 Community acquired pneumonia J18.9
--- NOTE | 2020-04-04 10:23 | P.DS_ITS ---
Discharge Providers Date of Admission: 04/03/20 01:32 Date of Discharge: April 04, 2020 Attending Provider at Admission: Tara Hays MD Attending Provider at Discharge: David Albert Primary Care Provider: DEB Caballero Diagnoses at Discharge Discharge Diagnosis (1) Angina at rest: Status: Acute (2) Community acquired pneumonia: Status: Acute Reason for Visit Reason for Visit: phy ref/poss heart attack Hospital Course Hospital Course The patient left AMA last night. She was seen by the night doctor before she left. Counseling was provided by the insurance follow up rep. She left realizing possible risks and unfavorable outcomes when leaving without completion of the testing and treatments. I gave her a call this morning. She sounded well. She states that she left because she was in a room with another patient and her bed was uncomfortable. She states that she is feeling very well. Denies any chest pain or shortness of breath. Denies any weakness. No fevers or chills. I notified her about abnormal stress test. 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 She was asked to come back to emergency room if she develops any new chest pain or shortness of breath or any other new complaints. She verbalized understanding and agreement. Discharge diagnoses and problem list: Chest pain. Abnormal stress test. The patient decided to have the rest of the work-up and treatments done in outpatient settings. She is contacting her primary care physician for more instructions. Pneumonia. Procalcitonin was normal. Doubt pneumonia. Does not need antibiotics. Her leukocytosis was probably reactive or due to steroids. COPD. Sounds stable. Hypertension. Well-controlled. Continue current management. Discharge Data Data Completed and Pending: Completed Studies During Hospitalization Category Date Time Status CT angio chest ab domen pelvis Urgen t Cat Scan 04/03/20 00:20 Completed XR chest 1V mart ble 35037 Stat Exams 04/02/20 18:35 Completed NM elena perf SPECT r/s* 78030 Routin e Nuc Med 04/03/20 02:22 Completed CV echo complete* 53827 Routine Ultrasound 04/03/20 02:22 Completed Vitals: Last Vital Signs Temp 98.1 F 04/03/20 19:40 Pulse 93 04/03/20 19:40 Resp 18 04/03/20 19:40 BP 126/81 04/03/20 19:40 Pulse Ox 96 04/03/20 19:40 Discharge Plan Discharge Patient Disposition: Left Against Medical Advice Condition: Stable Prescriptions: No Action fluticasone propion-salmeterol 250-50 mcg/dose blister with device See Rx Instructions .ROUTE .COMPLEX RF: 0 albuterol sulfate 2.5 mg /3 mL (0.083 %) solution for nebulization See Rx Instructions .ROUTE .COMPLEX RF: 0 meloxicam 15 mg tablet 15 mg PO DAILY@0900 RF: 0 prednisone 20 mg tablet 20 mg PO DAILY@0900 RF: 0 baclofen 10 mg tablet 10 mg PO DAILY@0900 RF: 0 Flovent HFA 220 mcg/actuation HFA aerosol inhaler See Rx Instructions .ROUTE .COMPLEX RF: 0 Ventolin HFA 90 mcg/actuation HFA aerosol inhaler See Rx Instructions .ROUTE .COMPLEX RF: 0 fluticasone propionate 50 mcg/actuation spray,suspension See Rx Instructions .ROUTE .COMPLEX RF: 0 doxycycline hyclate 100 mg tablet 100 mg PO DAILY@0900 RF: 0 hydrochlorothiazide 12.5 mg tablet 12.5 mg PO DAILY@0900 RF: 0 Mucinex 600 mg Tablet Extended Release 12hr 600 mg PO BID@0900,2100 RF: 0 Spiriva Respimat 1.25 mcg/actuation mist See Rx Instructions .ROUTE .COMPLEX RF: 0 turmeric 400 mg Capsule 400 mg PO DAILY@0900 RF: 0 ibuprofen-acetaminophen 125-250 mg Tablet 1 tab PO Q8H PRN (Reason: Pain) RF: 0 Benadryl 1 tab PO DAILY@0900 RF: 0 Multi For Her 1 tab PO DAILY@0900 RF: 0 potassium 1 tab PO DAILY@0900 RF: 0 zinc 1 tab PO DAILY@0900 RF: 0 Discharge Attestations Time Spent in Discharge Care*: other Quality Metrics Clinical Quality Measures During this hospital stay, did patient experience: None Coding Level of Care Code Acute [employer] for Cate Fwd Diagnoses Angina at rest I20.8 Community acquired pneumonia J18.9
--- NOTE | 2020-04-04 12:41 | PC.RESP ---
Smoking Cessation and Pulmonary Rehab information sent to patient.
== END 2020-04-03 19:48 | disposition left against medical advice (07) ==
LOC: ER 19:37 → MEDSURG 04-03 01:32
PROVIDERS: Emergency Medicine; Admitting Provider Internal Medicine; Emergency Provider Family Medicine; PCP Nurse Practitioner Family; Visit Provider Internal Medicine
DX: I20.8 Other forms of angina pectoris (principal); J18.9 Pneumonia, unspecified organism; J44.9 Chronic obstructive pulmonary disease, unspecified; Z79.52 Long term (current) use of systemic steroids; I10 Essential (primary) hypertension; F17.210 Nicotine dependence, cigarettes, uncomplicated; Z53.29 Procedure and treatment not carried out because of patient's decision for other reasons
CPT/HCPCS: 12345; 36415; 71045; 71275; 74174; 78452; 80048; 80053; 80061; 81003; 83036; 84145; 84484; 85025; 85378; 87426; 93005; 93017; 93306; 94640; 96365; 96367; 96375; 99283; 99285; A9500; G0378; J0696; J1885; J1956; J2785; Q0144; Q9967

== ENCOUNTER 2020-04-15 08:44 | Day surgery (SDC) | payer MEDICARE, SELFPAY ==
[2020-04-15] VITALS (20 sets, daily range): BP systolic 103–154; BP diastolic 70–104; PULSE 85–99; RESP 16–26; TEMP 36.6–37.1; O2SAT 90–95; BMI 40.3
--- NOTE | 2020-04-15 09:00 | XACV_ITS ---
Ht: 163 cm Wt: 107 kg BSA: 2.25 m2 Gender: Female : 1955 Any Known Allergies: Morphine Exam Priority: Routine Procedure(s): Procedure Description: Diagnostic procedure Procedure Description: Left Heart Catheterization Procedure Description: Percutaneous coronary intervention Diagnostic Cath Status: Elective Diagnostic Findings * LAD is a small sized vessel. It gives rise to a large sized diagonal. No significant disease is seen in either vessels.. * CX gives rise to 2 OM branches. OM 2 is larger branch and has proximal 75% stenosis.. * LM has mild luminal irregularities.. * RCA has minor luminal irregularities.. * Coronary angiography shows right dominance. PCI Status: Elective PCI Indication: New Onset Angina <= 2 months Interventional Findings * Second * obtuse Marginal Branch Segment: 75% stenosis treated with AB TREK 2.50X8 RX BALLOON and MDT R DOMINGO 2.75X15 EMILIANO. 0% residual stenosis, BELLA: 3 flow. * Left main artery was engaged using XB 3.5 guide catheter. We used a 0.014 run-through guidewire to cross the stenosis and was placed in distal OM 2. A 2.5 x 8 mm semicompliant balloon was used to predilate the stenosis. This was followed by placement of 2.75 x 15 mm resolute Domingo drug-eluting stent. At this time final angiogram was performed that showed excellent stent expansion, BELLA-3 flow and no residual stenosis. Guidewire and guide catheter were removed.. TR band was applied to obtain hemostasis. Patient left the Director Veterinary in a stable condition.. Conclusions 1. No significant disease noted in the Left Main, LAD, Circumflex, or RCA coronary arteries. 2. First Obtuse Marginal Branch Segment was treated with Balloon and Drug Eluting Stent. Recommendations * Aspirin and Plavix for at least 1 year. * High intensity statin therapy. * Beta blockers. * Outpatient cardiology follow up. Interventional RX Recommendation: PCI w/o planned CABG Diagnostic RX Recommendation: PCI w/o planned CABG Anticoagulation: Heparin Clinical Evaluation EBL: 5mL-10mL Procedural Details Procedure Consent Obtained. Admit Source: Out Patient. Pre-Procedure Time Out. Identified patient by full name and date of as verbalized by the patient/guarantor. Does the consent match the physician's order: Yes. Accurate & Complete Informed Consent: Yes. Inpatient/Outpatient History & Physical on Chart: Yes. If H&P is completed, is and addenduem needed: N/A; If yes, is the addendum complete: N/A. Visualize and Verify Site with Patient/Guarantor: N/A. Relevant Radiology Images available: N/A. Pre-op teaching completed and patient verbalized understanding. The risks, benefits, and alternatives of sedation and/or procedure were discussed by physician. The patient agrees to continue. Procedure started. Correct patient, site and procedure confirmed by cath team. PERRLA. 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 Lungs clear x 5 lobes. IV Site on Arrival: 20 gauge in the left anticubital. Pre Procedural Pulses: bilateral dorsalis pedis was 2+. Pre Procedural Pulses: bilateral posterior tibial was 1+. Pre Procedural Pulses: bilateral radial was 3+. Oxygen started at 2liters/min via nasal canula. bilateral groins was prepped with chloroprep then draped in the usual sterile fashion. right radial was prepped with chloroprep then draped in the usual sterile fashion. Physician notified. Baseline sample Acquired. HR: 90 BPM. Physician arrived. Physician scrubbed in. Immediate Pre-Procedure Time Out. Correct Patient: Yes; Correct Procedure: Yes; Correct Site: Yes; Correct Patient Position: Yes; Correct Supplies: Yes; Dried Flammable Prep: Yes; Blood Products Available: N/A;. Lidocaine 1% infiltrated to the right radial. Arterial access obtained. A 5 bruneian TIG catheter in over wire. Multiple views taken of left coronary artery. Catheter redirected to the RCA. Catheter out. 6 bruneian XB 3.5 guide catheter was inserted over the wire. Runthrough guidewire was advanced through the guide catheter to lesion in the OM. Inflation number : 1 A AB TREK 2.50X8 RX BALLOON was prepped and advanced across the 1st Ob Elisa , then inflated to 10 LULY for 0:15 seconds. Inflation number: 2 The AB TREK 2.50X8 RX BALLOON was reinflated across the 1st Ob Elisa, to 12 LULY for 0:20 seconds. Balloon out. Inflation Number : 3 Armando Rosario DOMINGO 2.75X15 EMILIANO -Lot Number# [id number] exp date: 11-18-2021 was prepped and advanced across the 1st Ob Elisa. The stent was deployed at 14 LULY for 0:24 seconds. Stent balloon out over wire. Wire out. Results checked. Guide catheter out. TR band placed. Hemostasis obtained. Post Procedure: Pulses reassessed and unchanged. PERRLA. 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 No VTE prophylaxis required. Medication's Wasted: Lidocaine 1% = 18 mL. Medication's Wasted: Heparin = 1000 units. Medication's Wasted: Nitro = 49.6 mg. Total IV fluids: 100 mL. Contrast type used: Omnipaque 300 mgI/mL, 500 mL bottle. Contrast Material : Omnipaque 185 ml. Complications: none]. Estimated blood loss: 5mL-10mL. A TR Band was successful obtaining hemostatsis at the Right Radial artery insertion site. [facility] Clinical Fraility Score: 3: Managing Well. Director Veterinary Indications: New Onset Angina. Chest Pain Symptom Assessment: Typical Angina Symptoms. Cardiovascular Instability: No. PCI Indication: New Onset Angina. Post-op diagnosis: severe OM1 stenosis. Procedure completed. Patient transferred by wheelchair to CPRU. Vital chart was stopped. Access Site Site: Right Radial artery Sheath Size: 6 Fr Hemostasis Method: TR Band Hemostasis Success: Successful Procedure Medications Start: 10:38 AM Stop: 10:38 AM Medication: Versed Amount: 2 mg Route: I.V. Start: 10:38 AM Stop: 10:38 AM Medication: Fentanyl Amount: 50 mcg Route: I.V. Start: 10:49 AM Stop: 10:49 AM Medication: Heparin Amount: 5000 units Route: I.V. Start: 10:56 AM Stop: 10:56 AM Medication: Versed Amount: 1 mg Route: I.V. Start: 10:56 AM Stop: 10:56 AM Medication: Heparin Amount: 5000 units Route: I.V. Start: 10:56 AM Stop: 10:56 AM Medication: Fentanyl Amount: 25 mcg Route: I.V. Start: 10:59 AM Stop: 10:59 AM Medication: Fentanyl Amount: 25 mcg Route: I.V. Start: 11:06 AM Stop: 11:06 AM Medication: Nitrogylcerin Amount: 200 mcg Route: I.C. Start: 11:08 AM Stop: 11:08 AM Medication: Versed Amount: 1 mg Route: I.V. Start: 11:13 AM Stop: 11:13 AM Medication: Plavix Amount: 300 mg Route: P.O. I, the attending physician, have reviewed and verified all procedure medications. Yes, all medications given per verbal order History/Risk Factors Hypertension: Yes Tobacco Use: Current/Recent(w/in 1 year) Report Signatures Finalized by Ralph Rojas MD on 04/22/2020 06:25 PM
[2020-04-15] MEDS: diphenhydrAMINE 50 mg Capsule PO (09:09)
--- NOTE | 2020-04-15 10:36 | W.PM.OPSUD ---
Surgery/Procedure H&P Update DATE OF PROCEDURE: April 15, 2020 DATE H&P PERFORMED: 04/10/20 H&P UPDATE INFORMATION: I have reviewed H&P completed within last 30 days, I have examined patient prior to procedure and No changes to prior documentation PREOP DIAGNOSIS: Chest pain/abnormal stress test PRIMARY INDICATION FOR PROCEDURE: Chest pain/ abnormal stress test PLANNED PROCEDURE: Operation Date: 04/15/20 10:00 Proposed Procedures p left Cardiac Catheterization 33104 r94.9(Left) - Ralph Rojas M.D PHYSICAL EXAM: alert, oriented x 3 and clear to auscultation bilaterally AIRWAY EVAL/ANESTHESIA PLAN: ASA III, Risks, benefits & alternatives of sedation and/or procedure discussed and Patient agrees to continue as planned
--- NOTE | 2020-04-15 11:15 | SUR.PHASEI ---
RECEIVED THE PATIENT BACK FROM THE END [facility] DEPARTMENT S/P PCI OF THE [facility] VIA WHEELCHAIR. BEDSIDE REPORT FROM Eulalio LIPSCOMB RN. PATIENT AMBULATED TO BED. A & O X 3. REQUESTING COFFEE. BUTTON SEWER HAND PLACED AND VITAL SIGNED OBTAINED. TR BAND INTACT TO THE RIGHT WRIST. PALPABLE RADIAL PULSE. NS INFUSING TO THE LEFT AC PER PHYSICIANS ORDER. PATIENT IS RECOVERING IN CPRU UNTIL A CSU BED BECOMES AVAILABLE. THE PATIENT WAS MADE AWARE OF THAT AND VERBALIZED HER UNDERSTANDING. HER SON, THAIS, WAS UPDATED BY DR. SERRANO AT THE END OF THE PROCEDURE. WILL CONTINUE TO MONITOR.
--- NOTE | 2020-04-15 12:22 | SUR.PHASEI ---
STARTED LETTING THE AIR OUT OF THE TR BAND PER PROTOCOL. NO OTHER ASSESSMENT CHANGES AT THIS TIME. SON AT BEDSIDE. LUNCH TO THE PATIENT.
--- NOTE | 2020-04-15 13:15 | SUR.PHASEI ---
TR BAND OFF. NO BLEEDING OR HEMATOMA NOTED. PALPABLE RADIAL PULSE. SITE CLEANSED WITH WATER AND PATTED DRY. A LARGE BAND AID WAS APPLIED TO THE SITE AND LIGHTLY SECURED WITH COBAN. POST TR ACTIVITY INSTRUCTIONS WERE GIVEN TO THE PATIENT AND HER SON, THAIS, WITH THEIR UNDERSTANDING VERBALIZED. PATIENT SITING UP ON THE SIDE OF THE BED PLAYING CARD GAMES ON HER CELL PHONE. NO ASSESSMENT CHANGES.
--- NOTE | 2020-04-15 13:38 | SUR.PHASEI ---
REPORT CALLED TO GLENN BECERRIL. PATIENT THEN TRANSFERRED VIA WHEELCHAIR TO ROOM 103.
--- NOTE | 2020-04-15 19:46 | PC.NURSE ---
Received report from off going nurse. Pt's plan of care reviewed. Pt is sitting up on edge of be playing a game on her cell phone. Respirations are even and unlabored. No s/sx of distress noted. Pt is alert and oriented and able to make her own decisions. Pt denies any chest pain or concerns at this time. Pt is currently sinus rhythm with occasional PVCs. Pt is satting 94% on RA. Cath site to right radial is clean, dry, and intact. No s/sx of bleeding or hematoma noted. Pt denies any pain when site is palpated. Bed in lowest and locked position, call light and water within reach, x's 2 rails up. Will continue to monitor pt.
[2020-04-15] MEDS: meloxicam 7.5 mg tablet 15 MG PO (21:16)
[2020-04-15] MEDS: guaiFENesin 600 mg Tablet PO (21:16)
[2020-04-15] MEDS: baclofen 10 mg Tablet PO (21:17)
[2020-04-16 01:01] VITALS: PULSE 85
[2020-04-16 04:17] VITALS: BP 120/90; PULSE 82; RESP 24; TEMP 36.8; O2SAT 91
[2020-04-16 05:07] LABS: Basophils % 0.3 %; Eosinophils # 0.2 10^3/uL (0.0-0.8); Eosinophils % 1.9 %; Hematocrit 47.1 % (37.0-47.0); Hemoglobin 14.9 g/dL (11.5-15.3); Lymphocytes # 2.9 10^3/uL (0.8-4.8); Lymphocytes % 28.7 %; Mean Corpuscular HGB Conc 31.6 g/dL (30.0-36.0); Mean Corpuscular Hemoglobin 28.7 pg (28.0-34.0); Mean Corpuscular Volume 90.6 fL (81-99); Mean Platelet Volume 9.1 fL (7.4-10.4); Monocytes # 0.5 10^3/uL (0.2-0.9); Monocytes % 5.3 %; Neutrophils # 6.33 10^3/uL (1.8-7.7); Neutrophils % 63.5 %; Nucleated Red Blood Cells % 0 %; Platelet Count 376 10^3/cmm (130-400); Red Cell Distribution Width 13.2 % (12.1-15.1)
[2020-04-16 05:30] VITALS: PULSE 87
[2020-04-16 07:19] LABS: Blood Urea Nitrogen 6 mg/dL (8-23); Calcium 9.1 mg/dL (8.5-10.5); Carbon Dioxide 32 mmol/L (22-29); Chloride 97 mmol/L (98-107); Glomerular Filtration Rate 161.7 mL/min (90-130); Glucose 94 mg/dL (65-115); Osmolality Calculated 283 mOsm/kg (285-295); Sodium 138 mmol/L (136-145)
[2020-04-16 08:22] VITALS: PULSE 85; RESP 17; O2SAT 92
[2020-04-16] MEDS: clopidogrel 75 mg Tablet PO (08:26)
[2020-04-16] MEDS: guaiFENesin 600 mg Tablet PO (08:26)
[2020-04-16] MEDS: aspirin 81 mg EC Tablet PO (08:26)
[2020-04-16] MEDS: hydroCHLOROthiazide 25 mg Tablet 12.5 MG PO (08:27)
[2020-04-16] MEDS: multivitamin therapeutic Tablet 1 TAB PO (08:27)
[2020-04-16 08:29] VITALS: PULSE 88
--- NOTE | 2020-04-16 09:06 | PM.SDS ---
Short Stay Summary Providers Date of Admit/Discharge: 04/22/20 Attending Provider: Ralph Rojas M.D Primary Care Provider: DEB Caballero Chief Complaint: [facility] HPI History of Present Illness 64-year-old woman with past medical history of hypertension, COPD, tobacco abuse had presented to the hospital on 04/02/2020 with complaints of chest pain. She underwent nuclear stress test that showed ischemia in the anterior wall. Patient did not stay in the hospital after that and left. According to patient she has been noticing chest pain that is substernal and radiates to left arm for the last few weeks. It has been getting worse with now. Initially she attributed to heartburn however it is more like pressure now. Occasionally she has also noted the symptoms going into her throat. Patient was scheduled to undergo the left heart cath with possible percutaneous coronary intervention and presented to hospital for that. Review of Systems General: Reports: 10 or more systems reviewed and unremarkable except in HPI and below Const: Reports: body aches and fatigue; Denies: fever(s) or chills Eyes: Denies: change in vision or photophobia ENMT: Denies: throat pain or odynophagia Card: Denies: chest pain (down leftg side), palpitations, irregular heart rhythm, swelling of feet/ankles, lightheadedness, pre-syncope, dyspnea on exertion or orthopnea Resp: Reports: non-productive cough; Denies: dyspnea, productive cough or wheezing GI: Denies: abdominal pain, nausea, vomiting or heartburn : Denies: difficulty voiding Musc: Reports: back pain (upper back); Denies: neck pain or joint pain Skin/Breast: Denies: rash or pruritus Neuro: Reports: dizziness (when standing up) and vertigo (when standing up); Denies: headache(s), numbness in extremities or weakness in extremities Psych: Denies: anxiety or depression Endo: Denies: polyuria Jose/Lymph: Denies: easy bruising or easy bleeding All/Imm: Denies: urticaria Home Meds/Allergies Home Medications and Allergies Home Medications Medication Instructions Recorded Confirmed Type Benadryl 1 tab PO DAILY@0900 04/02/20 04/14/20 History Flovent HFA See Rx Instructions .ROUTE .COMPLEX 04/02/20 04/14/20 History Multi For Her 1 tab PO DAILY@0900 04/02/20 04/14/20 History Spiriva Respimat See Rx Instructions .ROUTE .COMPLEX 04/02/20 04/14/20 History albuterol sulfate See Rx Instructions .ROUTE .COMPLEX 04/02/20 04/14/20 History albuterol sulfate [Ventolin HFA] See Rx Instructions .ROUTE .COMPLEX 04/02/20 04/14/20 History baclofen 10 mg PO DAILY@0900 04/02/20 04/14/20 History doxycycline hyclate 100 mg PO DAILY@0900 04/02/20 04/14/20 History fluticasone propion-salmeterol See Rx Instructions .ROUTE .COMPLEX 04/02/20 04/14/20 History fluticasone propionate See Rx Instructions .ROUTE .COMPLEX 04/02/20 04/14/20 History guaifenesin [Mucinex] 600 mg PO BID@0900,2100 04/02/20 04/14/20 History hydrochlorothiazide 12.5 mg PO DAILY@0900 04/02/20 04/14/20 History ibuprofen-acetaminophen 1 tab PO Q8H PRN 04/02/20 04/14/20 History meloxicam 15 mg PO DAILY@0900 04/02/20 04/14/20 History potassium 1 tab PO DAILY@0900 04/02/20 04/14/20 History prednisone 20 mg PO DAILY@0900 04/02/20 04/14/20 History turmeric 400 mg PO DAILY@0900 04/02/20 04/14/20 History zinc 1 tab PO DAILY@0900 04/02/20 04/14/20 History nitroglycerin 0.4 mg sublingual 0.4 mg SUBLINGUAL Q5M PRN 04/10/20 04/14/20 History tablet Allergies Allergy/AdvReac Type Severity Reaction Status Date / Time codeine Allergy ADR-Vomitin Verified 04/15/20 09:36 g morphine Allergy ADR-Vomitin Verified 04/15/20 09:36 g PFSH Acute PFSH: Medical History COPD (chronic obstructive pulmonary disease) Hypertension Surgical History H/O tubal ligation H/O: hemorrhoidectomy History of appendectomy History of hysterectomy Family History Grandmother Family history of premature coronary artery disease Social History Smoking and tobacco status: heavy tobacco smoker cigarettes [ Other cigarette details: [id number] smoking ] Alcohol intake: never Household members: family Housing: House Vitals/I&O/Wt Last Vital Signs Temp 98.2 F 04/16/20 04:17 Pulse 88 04/16/20 08:29 Resp 17 04/16/20 08:22 BP 120/90 04/16/20 04:17 Pulse Ox 92 04/16/20 08:22 04/15/20 04/16/20 04/16/20 22:59 06:59 14:59 Intake Total 360 / 1200 150 / 1350 Balance 360 / 1200 150 / 1350 Weight last 48 hrs Weight 235 lb Physical Exam Narrative: EXAM NARRATIVE: The patient is awake alert oriented. No acute distress. Mood and affect are appropriate. Responses are adequate. Skin warm and dry. Moist mucous nares. Neck supple. No JVD Lungs decreased breath sounds bilaterally. No crackles. No respiratory distress. Heart S1, S2, regular Abdomen soft, nontender, bowel sounds are present Extremities no edema cyanosis or calf tenderness bilaterally. No focal weakness. Normal speech Eyes Kaylee, extraocular muscles are intact. Hospital Course Hospital Course 64-year-old woman with past medical history of hypertension, COPD, tobacco abuse had presented to the hospital on 04/02/2020 with complaints of chest pain. She underwent nuclear stress test that showed ischemia in the anterior wall. Patient did not stay in the hospital after that and left. According to patient she has been noticing chest pain that is substernal and radiates to left arm for the last few weeks. It has been getting worse with now. Initially she attributed to heartburn however it is more like pressure now. Occasionally she has also noted the symptoms going into her throat. Patient was scheduled to undergo the left heart cath with possible percutaneous coronary intervention and presented to hospital for that. Patient was found to have severe stenosis of OM1. It underwent successful revascularization with EMILIANO x1. Patient stayed overnight and was doing well. She was discharged on dual antiplatelet therapy in a stable condition. SSS Data Data Completed and Pending: Pending at discharge Category Date Time Status ELIGIBILITY EXAMINER request for service Routin e Exams 04/15/20 09:00 Taken Discharge Plan Discharge Patient Disposition: Home Condition: Stable Prescriptions: New atorvastatin 40 mg tablet 40 mg PO DAILY Qty: 60 RF: 2 Continued nitroglycerin 0.4 mg tablet, sublingual 0.4 mg sublingual Q5M PRN (Reason: Chest Pain) RF: 0 clopidogrel [Plavix] 75 mg tablet 75 mg PO DAILY Qty: 90 RF: 3 aspirin [Adult Low Dose Aspirin] 81 mg tablet,delayed release (DR/EC) 81 mg PO DAILY Qty: 90 RF: 3 fluticasone propion-salmeterol 250-50 mcg/dose blister with device See Rx Instructions .ROUTE .COMPLEX RF: 0 albuterol sulfate 2.5 mg /3 mL (0.083 %) solution for nebulization See Rx Instructions .ROUTE .COMPLEX RF: 0 meloxicam 15 mg tablet 15 mg PO DAILY@0900 RF: 0 prednisone 20 mg tablet 20 mg PO DAILY@0900 RF: 0 baclofen 10 mg tablet 10 mg PO DAILY@0900 RF: 0 Flovent HFA 220 mcg/actuation HFA aerosol inhaler See Rx Instructions .ROUTE .COMPLEX RF: 0 albuterol sulfate [Ventolin HFA] 90 mcg/actuation HFA aerosol inhaler See Rx Instructions .ROUTE .COMPLEX RF: 0 fluticasone propionate 50 mcg/actuation spray,suspension See Rx Instructions .ROUTE .COMPLEX RF: 0 doxycycline hyclate 100 mg tablet 100 mg PO DAILY@0900 RF: 0 hydrochlorothiazide 12.5 mg tablet 12.5 mg PO DAILY@0900 RF: 0 guaifenesin [Mucinex] 600 mg Tablet Extended Release 12hr 600 mg PO BID@0900,2100 RF: 0 Spiriva Respimat 1.25 mcg/actuation mist See Rx Instructions .ROUTE .COMPLEX RF: 0 turmeric 400 mg Capsule 400 mg PO DAILY@0900 RF: 0 ibuprofen-acetaminophen 125-250 mg Tablet 1 tab PO Q8H PRN (Reason: Pain) RF: 0 Benadryl 1 tab PO DAILY@0900 RF: 0 Multi For Her 1 tab PO DAILY@0900 RF: 0 potassium 1 tab PO DAILY@0900 RF: 0 zinc 1 tab PO DAILY@0900 RF: 0 Discharge Orders: Discharge Order (Routine); Ordered 04/16/20 Ordered By: Ralph Rojas Referrals: Ralph Rojas M.D [Physician] - 1 month (Please follow-up with Dr. Rojas on May 14 at 3:30p.m. If you have any questions or need to reschedule. Please call ) Stephanie Fowler FNP [Nurse Practitioner] - 7-10 days (Please follow-up Stephanie Fowler on TuesdayApril 23 at 10:00a.m. If you have any questions or need to rescheudle. Please call ) Discharge Diet: Cardiac Discharge Activity: Increase activity as tolerated Patient Instructions: Atorvastatin (By mouth), Left Heart Catheterization (DC), Coronary Angioplasty (DC), Chest Pain Stoplight, Post Angiogram Home Care Instructions Activity Restrictions/Additional Instructions: Please do not lift more than 5 pounds of weight for the next 5 days Please do not miss any doses of aspirin and plavix for atleast 1 year Attestations Medical Necessity Statement*: Care not expected to cross 2 midnights Time Spent in Patient Care*: less than 30 min Quality Metrics Clinical Quality Measures: During this hospital stay, did patient experience: None Coding Level of Care Code Acute Lead Housekeeper for Cate Garcia
--- NOTE | 2020-04-16 09:08 | PC.CHAP ---
Pastoral Care Encounter/Spiritual Assessment Type of Contact [] Declined experimental preflight mechanic visit [] Patient/Family/Request visit [] Outpatient visit [] Follow-up visit [] Physician referral [] Code/Alert [x] Routine visit [] Staff referral [] Actively dying [] Patient sleeping [] Family support [] [] Out of room [] Palliative care [] [] Receiving care in room [] Pre-surgical visit [] Trauma [] Long length of stay [] ICU visit [x] Other: upset with Wed. AM nurse Relational/Emotional Strength [] Patient feels connected with others/family/visitors/staff [] Distress [] Loneliness/isolation [] Abandonment Spirituality of Patient [] Person of Bella [] Attends Uatsdin of their Bella [] Believes in Prayer [] Reads Bible or Episcopal materials [] There are Spiritual issues to be addressed Ammonia Refrigeration Technician Interventions [x] Prayer [x] Active listening [x] Non-anxious presence [x] Spiritual/emotional support [] Crisis/trauma care [] Spiritual counseling [] Bereavement support [] Provided bereavement packet [] Provided Bible/devotional materials [] Provided toy/stuffed animal, coloring book to patient or family member [] Provided Communion [] Anointing/Wilson [] Salvation [x] Completed spiritual assessment [] Other: Impact on Illness or Injury [] Angry [] Fearful [] Anxious [] Often cries [] Exhaustion [] Unable to work [] Unable to attend jain [] Unable to walk/stand [] Unable to read [] Unable to drive [] Unable to eat/drink [] Unable to sleep [] Unable to be with family [] Patient intubated [] Other: Summary patient upset with AM nurse regarding the way meds were to be administered... patient being released today and stated she would take meds when she returns home.. Ammonia Refrigeration Technician able to calm and pray ..... Time spent with patient 10 min
[2020-04-16 09:55] VITALS: BP 135/104; PULSE 89; RESP 18; O2SAT 92
--- NOTE | 2020-04-16 09:58 | PC.NURSE ---
patient discharged home at this time patient ambulated to private vehicle with IV in place this nurse ran to catch patient explained to patient that is takes time to process paper work patient agitatedly I gave you 30 min the doctor said i could go home i was leaving patient alert oriented and in stable condition IV discontinued cath intact min bleeding noted attempted to explain discharge instructions patient stated I can read I will look over them patient provided with copies
== END 2020-04-16 09:55 | disposition home or self-care (01) ==
LOC: CCL 08:52 → CSU 04-16 09:18
PROVIDERS: PCP Nurse Practitioner Family; Visit Provider Internal Medicine
DX: I20.0 Unstable angina (principal); R07.9 Chest pain, unspecified; R94.39 Abnormal result of other cardiovascular function study; I10 Essential (primary) hypertension; J44.9 Chronic obstructive pulmonary disease, unspecified; F17.210 Nicotine dependence, cigarettes, uncomplicated
CPT/HCPCS: 12345; 80048; 85025; 93454; 94640; C1725; C1769; C1874; C1887; C1894; C9600; J1644; J2250; J3010; J3490; J3535; J7030; J7611; Q0163; Q9967

== ENCOUNTER → 2021-06-18 14:04 | Outpatient (BNVA) | payer MEDICARE, SELFPAY | PROVIDERS: PCP Family Medicine; Visit Provider Internal Medicine | DX: R07.9 Chest pain, unspecified (principal); I10 Essential (primary) hypertension; Z72.0 Tobacco use; Z79.01 Long term (current) use of anticoagulants; Z79.82 Long term (current) use of aspirin | CPT/HCPCS: 99213; 99214 ==

== ENCOUNTER → 2022-03-22 13:40 | Outpatient (BNVA) | payer MEDICARE, SELFPAY | PROVIDERS: PCP Family Medicine; Visit Provider Internal Medicine | DX: R07.9 Chest pain, unspecified (principal); I10 Essential (primary) hypertension; F17.210 Nicotine dependence, cigarettes, uncomplicated | CPT/HCPCS: 99214 ==

== ENCOUNTER → 2022-12-20 13:16 | Outpatient (BNVA) | payer MEDICARE, SELFPAY | PROVIDERS: PCP Family Medicine; Visit Provider Internal Medicine | DX: R07.9 Chest pain, unspecified (principal); I10 Essential (primary) hypertension; Z72.0 Tobacco use; I25.10 Atherosclerotic heart disease of native coronary artery without angina pectoris | CPT/HCPCS: 99214 ==

== ENCOUNTER → 2023-09-19 14:11 | Outpatient (BNVA) | payer MEDICARE, SELFPAY | PROVIDERS: PCP Family Medicine; Visit Provider Internal Medicine | DX: I25.118 Atherosclerotic heart disease of native coronary artery with other forms of angina pectoris (principal); R07.9 Chest pain, unspecified; I10 Essential (primary) hypertension; Z72.0 Tobacco use | CPT/HCPCS: 99214 ==

== ENCOUNTER 2023-10-12 07:46 | Outpatient (CLI) | payer MEDICARE, MEDICAID, SELFPAY ==
--- NOTE | 2023-10-12 08:00 | USCV_ITS ---
Arlin Arndt Age: 67 Gender: F : 1955 Exam Date: 10/12/2023 07:57 Ordering Phys: Ralph Rojas M.D ([email or web address]) Technologist: Exam Location: [facility] [place] Indication: cp sob BP: / HR: 70 Rhythm: Sinus Technical Quality: MEASUREMENTS (Male / Female) Normal Values 2D ECHO LV Diastolic Diameter PLAX 4.3 cm 4.2 - 5.9 / 3.9 - 5.3 cm IVS Diastolic Thickness 0.9 cm 0.6 - 1.0 / 0.6 - 0.9 cm IVS Systolic Thickness 1.7 cm LVPW Diastolic Thickness 0.9 cm 0.6 - 1.0 / 0.6 - 0.9 cm LVPW Systolic Thickness 1.6 cm LVOT Diameter 2.0 cm LV Ejection Fraction 2D Teich 67.5 % LV Ejection Fraction MOD 4C 71.4 % LV Ejection Fraction MOD 2C 53.6 % LV Ejection Fraction 2C AL 56.1 % LA Diameter 3.1 cm RA Systolic Volume 4C AL 18.9 ml RA Systolic Volume 4C MOD 18.5 ml LA Sys Volume AL 47.7 cm cubed LA Sys Volume Index AL 25.8 cm cubed/m squared Aorta at Sinotubular Diameter 1.9 cm IVC Diameter 2.0 cm M-MODE LA Ao Ratio MM 1.2 AV Cusp Separation MM 1.8 cm DOPPLER AV Peak Velocity 124.0 cm/s LVOT Peak Velocity 96.0 cm/s AV Area Cont Eq vti 2.6 cm squared AV Area Cont Eq pk 2.5 cm squared MV Peak Velocity 122.0 cm/s MV Area PHT 3.3 cm squared Mitral E to A Ratio 1.1 TV Peak Velocity 360.5 cm/s TR Peak Velocity 438.0 cm/s TR Peak Gradient 76.7 mmHg TV Peak E Velocity 128.0 cm/s Right Atrial Pressure 3.0 mmHg Pulmonary Artery Systolic Pressu 79.7 mmHg PV Peak Velocity 104.0 cm/s FINDINGS Left Ventricle Left ventricle is normal in size. LV systolic function is normal with EF 55 to 60%. No regional wall motion abnormalities are seen. Right Ventricle Normal in size and function Right Atrium Normal in size Left Atrium Normal in size Mitral Valve Structurally normal mitral valve. Trace mitral regurgitation Aortic Valve Aortic valve is thickened. No significant stenosis or regurgitation. Tricuspid Valve Mild tricuspid regurgitation. RVSP is 75-80 mmHg. This is consistent with severe pulmony hypertension Pulmonic Valve Not well visualized Pericardium Normal Aorta Normal in size IVC Appears to be dilated CONCLUSIONS LV systolic function is normal with EF 55 to 60%. Trace mitral regurgitation Mild tricuspid regurgitation Severe pulmonary hypertension IVC appears dilated. Compared to prior echocardiogram from 2020, patient now has severe pulmonary hypertension. Ralph Rojas MD (Electronically Signed) Final Date: 25 October 2023 11:39 S
== END 2023-10-12 07:47 | disposition home or self-care (01) ==
LOC: RAD 07:46
PROVIDERS: PCP Family Medicine; Visit Provider Internal Medicine
DX: I07.1 Rheumatic tricuspid insufficiency (principal); I27.20 Pulmonary hypertension, unspecified; R07.9 Chest pain, unspecified; R06.02 Shortness of breath
CPT/HCPCS: 93306

== ENCOUNTER 2023-10-24 07:45 | Outpatient (CLI) | payer MEDICARE, MEDICAID, SELFPAY ==
--- NOTE | 2023-10-24 | ECG_ITS ---
[facility] Test Date: 2023-10-24 Pat Name: Arlin Arndt Department: Room: Gender: Female Fiber Picker: : 1955 Requested By: Ralph Rojas Order Number: [id number] Reading MD: Interpretive Statements Lung unchanged pre/post procedure; Intraprocedure shortess of breath; Symptoms resoled by discharge [email or web address]
[2023-10-24 07:49] VITALS: BMI 27.8
--- NOTE | 2023-10-24 07:58 | NMCV_ITS ---
NM elena perf SPECT r/s* [id number] Arlin Arndt Age: 67 Gender: F : 1955 Exam Date: 10/24/2023 07:58 Ordering Phys: Ralph Rojas M.D ([email or web address]) Technologist: JAZMYN Ohara Exam Location: [facility] Indications: SOB, CP STRESS TEST Please see separate stress test report in [facility] for full findings IMAGE PROTOCOL Rest/Stress 1 Lexiscan Day Radiopharmaceutical Dose (mCi) Administration Site Administered by Rest: Tc-99m 10.6 IV JAZMYN Ohara Sestamibi Stress:Tc-99m 32.2 IV JAZMYN Ohara Sestamibi Rest: 10/24/2023 45 Discovery 630 Stress: 10/24/2023 30 Discovery 630 0.4mg Lexiscan. Supine position only as patient was unable to lay prone. SPECT RESULTS Technical Quality: Excellent Raw Data Analysis: Normal Image Corrections: No attenuation or motion correction applied Summed Stress Score: 1 Summed Rest Score: 1 Summed Difference Score: 1 PERFUSION FINDINGS There is a small sized, partially reversible perfusion defect seen in the inferolateral wall. This is consistent with small area of prior infarct with small sized area of trudy-infarct ischemia in the left circumflex artery territory. FUNCTIONAL RESULTS (calculated via Gated SPECT) Stress Image LV EF (%): 75 Stress EDV (mL):85 TID: 1.11 Stress ESV (mL):21 FUNCTIONAL FINDINGS: There is normal left ventricular systolic function. IMPRESSIONS 1. Small area of prior infarct with minimal trudy-infarct ischemia seen in left circumflex artery territory. 2. LV systolic function is normal. Ralph Rojas MD (Electronically Signed) Final Date: 24 October 2023 10:52 S
[2023-10-24] MEDS: regadenoson 0.4 Mg/5 ml Syringe IVP (09:45)
[2023-10-24 10:02] VITALS: BP 162/84; PULSE 72
== END 2023-10-24 07:46 | disposition home or self-care (01) ==
PROVIDERS: PCP Family Medicine; Visit Provider Internal Medicine
DX: R07.9 Chest pain, unspecified (principal); R06.02 Shortness of breath; R94.39 Abnormal result of other cardiovascular function study
CPT/HCPCS: 36415; 78452; 93017; 96374; A9500; J2785